=== PATIENT | male | born 1940 | race Caucasian/White ===

== ENCOUNTER 2020-05-28 10:59 | Inpatient (IN) | payer MEDICARE, BC, OTHER ==
[2020-05-28 11:48] LABS: #Lymphocytes 1.4 thou/uL (1.20-3.40); #Monocytes 0.9 thou/uL (0.11-0.59); #Neutrophils 7.1 thou/uL (1.40-6.50); %Basophils 0.1 % (0.0-1.0); %Eosinophils 0.1 % (0.0-10.0); %Lymphocytes 14.8 % (21.0-51.0); %Monocytes 9.9 % (0.0-10.0); %Neutrophils 75.1 % (42.0-75.0); Mean Corpuscular HGB CONC 33.3 g/dL (32.0-36.0); Mean Corpuscular Hemoglobin 33.5 pg (27.0-31.0); Mean Platelet Volume 9.4 fL (7.4-10.4); Platelet Count 229 thou/uL (130-400); RBC Distribution Width 13.1 % (11.5-14.5); Red Blood Cell (RBC) Count 3.58 mill/uL (4.70-6.10); White Blood Cell (WBC) Count 9.4 thou/uL (4.8-10.8)
[2020-05-28 11:53] LABS: INR-International Normal Ratio 1.2
[2020-05-28 11:54] LABS: PTT 30.1 sec (22.9-36.1)
[2020-05-28] MEDS ORDERED: Pantoprazole 40 MG VIAL ONE (12:05)
[2020-05-28 12:11] LABS: ALT (SGPT) 14 U/L (8-55); AST (SGOT) 20 U/L (5-34); Albumin 3.2 g/dL (3.4-4.8); Alkaline Phosphatase 34 U/L (40-110); Anion Gap 17 mmol/L (10-20); BUN (Urea Nitrogen) 61 mg/dL (8.4-25.7); Bilirubin, Total 0.7 mg/dL (0.2-1.2); Calc. Creatinine Clearance 0 mL/min (70-130); Carbon Dioxide 22 mmol/L (23-31); Chloride 104 mmol/L (98-107); Globulin 2.8 g/dL (2.4-3.5); Glucose 138 mg/dL (83-110); Potassium 3.6 mmol/L (3.5-5.1); Sodium 139 mmol/L (136-145)
[2020-05-28] MEDS ORDERED: Ondansetron PF 4 MG/2 ML Vial IVP PRN (13:03)
[2020-05-28] MEDS ORDERED: Acetaminophen 325 MG TAB PO PRN (13:03)
[2020-05-28] MEDS ORDERED: Dextrose 50% Abboject 50 ML SYRINGE SLOW IVP PRN (13:05)
[2020-05-28] MEDS ORDERED: HumaLOG 300 UNITS/3 ML VIAL SC PRN (13:05)
[2020-05-28] MEDS ORDERED: Dextrose 5% in Water 1,000 ML IV PRN (13:05)
[2020-05-28 14:01] LABS: Hemoglobin 11.8 g/dL (14.0-18.0)
[2020-05-28 14:41] LABS: CKMB 5.8 ng/mL (0-6.6)
[2020-05-28] MEDS ORDERED: Digoxin 0.5 MG/2 ML AMP SLOW IVP SCH (14:45)
[2020-05-28] MEDS ORDERED: Sodium Chloride 0.9% 1,000 ML IV SCH (14:45)
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
--- NOTE | 2020-05-28 16:05 | CON ---
DATE OF CONSULTATION: 05/28/2020 REQUESTING PHYSICIAN: Minal Hernandez MD REASON FOR CONSULTATION: Melena. HISTORY OF PRESENT ILLNESS: Vinh Mishra is a 79-year-old man with prior history of remote CVA and coronary artery disease as well as former tobacco abuse. He is being admitted to the hospital after presenting today complaining of melena, fatigue, and dizziness. He reports no chronic gastrointestinal symptoms. No prior significant gastrointestinal history. He has never undergone EGD or colonoscopy and has no family history of GI malignancy. He denies NSAID use. He does take what sounds like Aggrenox. He reports that for about the past week he has been having episodic dizziness and lightheadedness. Then the day before yesterday, he started having jet black stool. This is completely new for him. He has had two or three episodes of this over the past couple of days, much looser than before with a couple of accidents. There has been no red blood per rectum. No nausea or vomiting or hematemesis. He is not having any abdominal pain or heartburn. His fatigue and shortness of breath increased today and so he presented for evaluation. Upon arrival, he was mildly hypotensive with blood pressure 94/48 with 1 L of IV fluid. His blood pressure came back up nicely. Laboratory studies demonstrate hemoglobin mildly low at 11.8, BUN 61, creatinine 1.66. CK-MB only 5.8, troponin only 0.081. He was started on Protonix drip and is being admitted for further evaluation of the melena. REVIEW OF SYSTEMS: Full review of systems including constitutional, head, eyes, ears, nose, throat, GI, , cardiovascular, respiratory, musculoskeletal, neurologic systems is negative except as noted in the HPI. PAST MEDICAL HISTORY: Coronary artery disease, status post PTCA in the , hypertension, hyperlipidemia, diabetes, obesity, left ankle ORIF, CVA in 2013, former tobacco abuse, former alcohol abuse, and macular degeneration. ALLERGIES: NO KNOWN DRUG ALLERGIES. MEDICATIONS: Outpatient medications: The patient cannot remember the name of medications. He is taking what sounds like Aggrenox. He denies any NSAID use. Inpatient medications: Pantoprazole IV drip. SOCIAL HISTORY: He previously abused alcohol and smokes, but quit all that 10 or more years ago. No current smoking, alcohol, or drug use. FAMILY HISTORY: Negative for GI malignancy. PHYSICAL EXAMINATION: VITAL SIGNS: Temperature 97.5, blood pressure 127/72, pulse 85, and oxygen saturation 100% on room air. GENERAL: A 79-year-old man, lying in bed comfortably, in no distress. SKIN: He is a bit pale. No jaundice. No rashes were palpable. EYES: No scleral icterus. Extraocular movements intact. ENT: Mucous membranes moist. No oral lesions. LYMPH: No submandibular or supraclavicular lymphadenopathy. THYROID: Nontender to palpation. HEART: Regular rate and rhythm. LUNGS: Clear to auscultation bilaterally. ABDOMEN: Nondistended. Bowel sounds present. Soft and nontender to palpation throughout. EXTREMITIES: No peripheral edema. VESSELS: Radial pulses 2+ bilaterally. NEURO: Cranial nerves II through XII intact bilaterally. No focal deficits. LABORATORY STUDIES: Hemoglobin 11.8, WBC 9.4, platelets 229, and MCV is 100.0. INR 1.2. Sodium 139, potassium 3.6, BUN 61, creatinine is 1.66, and glucose 138. LFTs all normal with total bilirubin 0.7, alkaline phosphatase 34, AST 20, ALT 14, albumin 3.2, troponin is 0.081, CK-MB is only 5.8. ASSESSMENT AND PLAN: 1. Melena, over the past couple of days. 2. Anemia, mild. 3. Fatigue. The patient's presentation does sound like subacute gastrointestinal hemorrhage, likely upper gastrointestinal source. Aside from the melena, he does not have any primary GI symptoms. He appears hemodynamically stable at this point. I agree with the pantoprazole drip. We are going to plan for diagnostic esophagogastroduodenoscopy tomorrow. Get the COVID screen done today. I did discuss with the patient that if the upper endoscopy is completely normal and he has significant hemoglobin decline, we may need to consider colonoscopy thereafter, but he is against the idea of undergoing any colonoscopy. Further recommendations following EGD tomorrow. Please call anytime with questions or concerns or significant changes in his clinical status. Job ID: [id number]
[2020-05-28 19:21] LABS: Hemoglobin 10.9 g/dL (14.0-18.0)
[2020-05-28] MEDS: Pantoprazole 80 MG, Admixture Fee 1 EACH in Sodium Chloride 0.9% 100 ML IVPB SCH (23:08)
[2020-05-29 01:14] LABS: Hemoglobin 9.6 g/dL (14.0-18.0)
[2020-05-29 04:20] LABS: #Eosinphils 0.1 thou/uL (0.0-0.7); #Lymphocytes 1.1 thou/uL (1.20-3.40); #Monocytes 0.7 thou/uL (0.11-0.59); #Neutrophils 4.8 thou/uL (1.40-6.50); %Basophils 0.2 % (0.0-1.0); %Eosinophils 1.4 % (0.0-10.0); %Lymphocytes 16.4 % (21.0-51.0); %Monocytes 10.1 % (0.0-10.0); Mean Corpuscular HGB CONC 33.6 g/dL (32.0-36.0); Mean Platelet Volume 8.8 fL (7.4-10.4); Platelet Count 168 thou/uL (130-400); RBC Distribution Width 13.1 % (11.5-14.5); Red Blood Cell (RBC) Count 2.95 mill/uL (4.70-6.10); White Blood Cell (WBC) Count 6.7 thou/uL (4.8-10.8)
[2020-05-29 04:42] LABS: Anion Gap 12 mmol/L (10-20); BUN (Urea Nitrogen) 62 mg/dL (8.4-25.7); Calc. Creatinine Clearance 62 mL/min (70-130); Calcium 8.3 mg/dL (7.8-10.44); Carbon Dioxide 24 mmol/L (23-31); Chloride 108 mmol/L (98-107); Glucose 90 mg/dL (83-110); Potassium 3.4 mmol/L (3.5-5.1); Sodium 141 mmol/L (136-145)
[2020-05-29 07:06] LABS: Hemoglobin 10.2 g/dL (14.0-18.0)
--- NOTE | 2020-05-29 08:50 | PRG ---
DATE OF SERVICE: 05/29/2020 SUBJECTIVE: Mr. Mishra feels about the same today. He has generalized fatigue. He denies dizziness or lightheadedness, but he has been supine all morning. He denies any chest pain or palpitations or significant shortness of breath. No nausea or vomiting. He had one bowel movement last night, which remained dark in color. Anesthesia has canceled his EGD this morning due to new onset atrial fibrillation, needing further workup prior to any other procedure. OBJECTIVE: VITAL SIGNS: Temperature 98.7, pulse 102 and irregular, blood pressure 104/55, 97% oxygen saturation on room air. GENERAL: No acute distress. HEART: Irregular borderline tachycardia. LUNGS: Clear to auscultation bilaterally. ABDOMEN: Soft, nondistended. Bowel sounds present. Nontender to palpation. EXTREMITIES: No peripheral edema. LABORATORY STUDIES: Hemoglobin declined to 10.2, but stable since midnight. WBC is 6.7, platelets 168. INR 1.2. Sodium 141, potassium 3.4, BUN 62, creatinine 1.42, glucose 89, calcium 8.3. ASSESSMENT AND PLAN: 1. Melena, subacute over the past 3 days. 2. Acute blood loss anemia, mild, also seems subacute. 3. Fatigue. 4. New onset atrial fibrillation. Anesthesia has canceled his planned EGD for this morning due to what appears to be new onset atrial fibrillation. I have notified the primary service. Also note, the patient's COVID result is still pending, though I really do not suspect COVID in his case. GI can continue to follow along, and can plan for EGD whenever formal cardiac clearance is obtained. In the meantime, I would hesitate to start the patient on any anticoagulation, but would defer this to the primary service and/or apprentice plumber. Continue with the IV PPI. I think he can have a diet today. Please call anytime with questions or concerns, and let us know when the patient has been cleared for procedure. Job ID: [id number]
[2020-05-29] MEDS ORDERED: FLU VACC QS2020-21(65YR UP)/PF 240 MCG/0.7 ML SYRINGE IM ONE (09:00)
[2020-05-29 12:35] LABS: Hemoglobin 10.4 g/dL (14.0-18.0)
[2020-05-29] MEDS: Pantoprazole 80 MG, Admixture Fee 1 EACH in Sodium Chloride 0.9% 100 ML IVPB SCH ×2 (13:04→20:54)
--- NOTE | 2020-05-29 15:52 | PDOC.HOSPP ---
- Subjective Encounter Date: 05/29/20 Encounter Time: 15:50 Subjective: This is a 79-year-old who presented to the hospital with melena. He is not the greatest of historians. He reportedly had called his sibling with a complaint of feeling dizzy whenever he tried to ambulate and he advised him to go to the emergency room. Since being admitted he reported 2 more episodes of dark stools. His hemoglobin appears reasonably stable. He is being evaluated by GI service. Since being admitted he was found to have atrial fibrillation but with rate control. Patient denies prior history of A. fib. GI wants cardiac clearance prior to any kind of intervention. Patient is unable to be anticoagu lated due to the GI bleeding issues. We will ask a watch engineer colleague to help us out. - Objective Vital Signs & Weight: Vital Signs (12 hours) Temp Pulse Pulse Pulse Resp BP BP 05/29/20 12:00 99.4 F 95 20 05/29/20 11:20 105 H 69 129/62 159/69 H 05/29/20 08:23 98.3 F 89 20 05/29/20 08:00 98.5 F 89 20 05/29/20 04:00 98.7 F 102 H 16 BP Pulse Ox 05/29/20 12:00 127/58 L 94 L 05/29/20 11:20 05/29/20 08:23 118/55 L 98 05/29/20 08:00 118/55 L 98 05/29/20 04:00 104/55 L 97 Weight Weight 224 lb I&O: 05/28/20 05/29/20 05/30/20 07:59 06:59 06:59 Intake Total Balance Result Diagrams: 05/29/20 12:10 05/29/20 04:02 Additional Labs: Accuchecks 05/29/20 05/29/20 05/28/20 10:57 05:46 20:23 POC Glucose 99 89 133 H 05/28/20 18:28 POC Glucose 105 H Radiology Reviewed by me: Yes EKG Reviewed by me: Yes Hospitalist ROS - Review of Systems Constitutional: reports: chills, weakness, malaise Gastrointestinal: reports: nausea, vomiting - Medication Medications: Active Medications Generic Name Dose Route Start Last Admin Trade Name Freq PRN Reason Stop Dose Admin Pantoprazole Sodium 80 mg/ 100 mls @ 10 mls/hr 05/28/20 12:30 05/29/20 13:04 Miscellaneous Medication 1 IVPB 100 mls each/ Sodium Chloride INF LUCIA Administration - Exam General Appearance: NAD, awake alert Eye: PERRL ENT: normocephalic atraumatic, no oropharyngeal lesions Neck: supple, symmetric, no lymphadenopathy Heart: RRR, no murmur, normal peripheral pulses Gastrointestinal: soft, non-tender, non-distended, normal bowel sounds Extremities: no clubbing, no edema Psychiatric: normal affect, normal behavior Hosp A/P (1) Melena Code(s): K92.1 - MELENA Status: Acute Plan: GI evaluation is ongoing. H&H seems reasonably stable. (2) Atrial fibrillation Code(s): I48.91 - UNSPECIFIED ATRIAL FIBRILLATION Status: Acute Qualifiers: Atrial fibrillation type: paroxysmal Qualified Code(s): I48.0 - Paroxysmal atrial fibrillation Plan: This appears to be new onset. He denied any prior history of A. fib. We will continue rate control strategies. He is not a candidate for anticoagulation for obvious reasons. (3) Anemia due to chronic blood loss Code(s): D50.0 - IRON DEFICIENCY ANEMIA SECONDARY TO BLOOD LOSS (CHRONIC) Status: Acute Plan: We will continue to watch H&H very close. - Plan old records reviewed/req, PT/OT, DVT proph w/SCDs #1. Atrial fibrillation. He is rate controlled at the moment. I will ask cardiology for an opinion. He is not going to be a candidate for anticoagulation.
[2020-05-29 18:21] LABS: Hemoglobin 10.9 g/dL (14.0-18.0)
[2020-05-29] MEDS: Metoprolol Tartrate 25 MG TAB PO SCH (20:29)
--- NOTE | 2020-05-29 21:09 | CON ---
DATE OF CONSULTATION: HISTORY OF PRESENT ILLNESS: The patient is a 79-year-old gentleman who is to undergo an endoscopy today and was found to have an irregular heart rhythm. The patient has a history of coronary artery disease. He states nearly 30 years ago he underwent coronary angioplasty. He has subsequently done well. He presented to the hospital with weakness and dizziness. The patient started having dark stool and was admitted for further evaluation. The patient denies having any palpitations. PAST MEDICAL HISTORY: 1. Coronary artery disease. 2. Diabetes mellitus. 3. Hypertension. 4. Dyslipidemia. 5. History of CVA. PAST SURGICAL HISTORY: Ankle surgery. SOCIAL HISTORY: He is a former smoker. ALLERGIES: NO KNOWN DRUG ALLERGIES. FAMILY HISTORY: There is a positive family history of coronary artery disease. REVIEW OF SYSTEMS: Ten-point system otherwise unremarkable. PHYSICAL EXAMINATION: GENERAL: A well-developed gentleman, in no acute distress. VITAL SIGNS: Blood pressure 127/58. NECK: No jugular venous distention. LUNGS: Clear to auscultation. HEART: Irregular rate and rhythm. Normal S1, S2 with a 1/6 systolic murmur. ABDOMEN: Nondistended. EXTREMITIES: Show no edema. VASCULAR: Radial pulses 2+. LABORATORY DATA: Sodium 141, potassium 3.4, chloride 108, bicarb 24, BUN 62, creatinine was 1.4. White blood cell count 6.7, hemoglobin 10, hematocrit 29.7. His platelets were 168. EKG atrial fibrillation with a controlled ventricular response. IMPRESSION: 1. Gastrointestinal hemorrhage. 2. Paroxysmal atrial fibrillation. 3. History of coronary artery disease. 4. Diabetes mellitus. 5. Hypertension. 6. Dyslipidemia. 7. Mild aortic stenosis. This gentleman presents with atrial fibrillation. From a cardiac standpoint, he cannot be anticoagulated due to his recent hemorrhage. The patient's echocardiogram revealed normal left ventricular systolic function. After he undergoes a GI evaluation, he needs to either be on chronic anticoagulation therapy or consider for a Watchman device. This gentleman presented with gastrointestinal hemorrhage. He is in atrial fibrillation. We will start him on lopressor to control the patient's heart rate. He will undergo endoscopy. We will follow this patient with you through his hospitalization. Job ID: [id number] [facility]
[2020-05-30 04:29] LABS: #Eosinphils 0.1 thou/uL (0.0-0.7); #Lymphocytes 1.2 thou/uL (1.20-3.40); #Monocytes 0.7 thou/uL (0.11-0.59); #Neutrophils 4.2 thou/uL (1.40-6.50); %Basophils 0.6 % (0.0-1.0); %Eosinophils 1.6 % (0.0-10.0); %Lymphocytes 19.1 % (21.0-51.0); %Neutrophils 67.6 % (42.0-75.0); Hemoglobin 10.3 g/dL (14.0-18.0); Mean Corpuscular HGB CONC 33.7 g/dL (32.0-36.0); Mean Corpuscular Hemoglobin 33.9 pg (27.0-31.0); Mean Platelet Volume 8.8 fL (7.4-10.4); Platelet Count 169 thou/uL (130-400); Red Blood Cell (RBC) Count 3.03 mill/uL (4.70-6.10); White Blood Cell (WBC) Count 6.2 thou/uL (4.8-10.8)
[2020-05-30 04:56] LABS: Anion Gap 11 mmol/L (10-20); BUN (Urea Nitrogen) 50 mg/dL (8.4-25.7); Calc. Creatinine Clearance 71 mL/min (70-130); Calcium 8.1 mg/dL (7.8-10.44); Carbon Dioxide 26 mmol/L (23-31); Chloride 106 mmol/L (98-107); Glucose 91 mg/dL (83-110); Magnesium 1.7 mg/dL (1.6-2.6); Potassium 3.4 mmol/L (3.5-5.1); Sodium 140 mmol/L (136-145)
[2020-05-30] MEDS: Metoprolol Tartrate 25 MG TAB PO SCH ×2 (08:52→20:08)
[2020-05-30] MEDS ORDERED: Metoprolol Tartrate 25 MG TAB PO SCH ×2 (09:51→10:00)
[2020-05-30] MEDS: Pantoprazole 80 MG, Admixture Fee 1 EACH in Sodium Chloride 0.9% 100 ML IVPB SCH ×2 (10:15→20:08)
[2020-05-30] MEDS ORDERED: PHENYLEPHRINE-NS 100 MCG/ML 10 ML SYRINGE ONE (11:32)
[2020-05-30] MEDS ORDERED: PROPOFOL 200 MG/20 ML VIAL ONE (11:32)
[2020-05-30] MEDS ORDERED: Lidocaine 1% PF 5 ML VIAL ONE (11:32)
[2020-05-30 12:50] LABS: SARS-CoV-2 MS2 Positive; SARS-CoV-2 N Gene Negative; SARS-CoV-2 S Gene Negative; SARS-CoV-2 by NAA Not Detected (NotDetected); SARS-CoV-2 orf1ab Negative
--- NOTE | 2020-05-30 16:30 | PDOC.HOSPP ---
- Subjective Encounter Date: 05/30/20 Encounter Time: 16:29 Subjective: 79-year-old seen and examined today. He presented with melena. GI evaluation is ongoing. He is going down for upper endoscopy today. His hemoglobin appears relatively stable. - Objective Vital Signs & Weight: Vital Signs (12 hours) Temp Pulse Resp BP Pulse Ox 05/30/20 12:15 98.8 F 92 16 129/60 92 L 05/30/20 09:10 92 L 05/30/20 08:40 98.4 F 111 H 18 124/58 L 92 L Weight Admit Weight 226 lb 8 oz Weight 227 lb 9.6 oz I&O: 05/29/20 05/30/20 05/31/20 06:59 06:59 06:59 Intake Total 1506 Output Total 1100 Balance 406 Result Diagrams: 05/30/20 04:10 05/30/20 04:10 Additional Labs: Accuchecks 05/30/20 05/30/20 05/29/20 10:32 06:06 20:47 POC Glucose 84 95 74 05/29/20 17:30 POC Glucose 78 Radiology Reviewed by me: Yes EKG Reviewed by me: Yes Hospitalist ROS - Review of Systems Constitutional: reports: weakness Eyes: reports: pain Cardiovascular: reports: chest pain Gastrointestinal: reports: nausea Neurological: reports: weakness - Medication Medications: Active Medications Generic Name Dose Route Start Last Admin Trade Name Freq PRN Reason Stop Dose Admin Pantoprazole Sodium 80 mg/ 100 mls @ 10 mls/hr 05/28/20 12:30 05/29/20 20:54 Miscellaneous Medication 1 IVPB 100 mls each/ Sodium Chloride INF LUCIA Administration - Exam General Appearance: awake alert, ill appearing Eye: PERRL ENT: normocephalic atraumatic, moist mucosa Neck: supple Respiratory: CTAB, no wheezes, no rales, no ronchi, normal chest expansion Gastrointestinal: soft, non-tender, non-distended, normal bowel sounds, no palpable masses, no hepatomegaly Extremities: no cyanosis Neurological: cranial nerve grossly intact Musculoskeletal: normal tone, generalized weakness Psychiatric: normal affect, normal behavior, A&O x 3 Hosp A/P (1) Melena Code(s): K92.1 - MELENA Status: Acute Plan: Plan for endoscopic evaluation today. (2) Atrial fibrillation Code(s): I48.91 - UNSPECIFIED ATRIAL FIBRILLATION Status: Acute Qualifiers: Atrial fibrillation type: paroxysmal Qualified Code(s): I48.0 - Paroxysmal atrial fibrillation Plan: Cardiology cleared him for procedure today. We will pursue rate control strategy for now. (3) Anemia due to chronic blood loss Code(s): D50.0 - IRON DEFICIENCY ANEMIA SECONDARY TO BLOOD LOSS (CHRONIC) Status: Acute - Plan #1. Atrial fibrillation. He is rate controlled at the moment. I will ask cardiology for an opinion. He is not going to be a candidate for anticoagulation. 2. Melena. GI evaluation today with upper endoscopy.
--- NOTE | 2020-05-30 17:06 | PDOC.FMACP ---
Advance Care Planning - Problem (1) Palliative care encounter Status: Acute Code(s): Z51.5 - ENCOUNTER FOR PALLIATIVE CARE (2) Anemia due to chronic blood loss Status: Acute Code(s): D50.0 - IRON DEFICIENCY ANEMIA SECONDARY TO BLOOD LOSS (CHRONIC) (3) Atrial fibrillation Status: Acute Code(s): I48.91 - UNSPECIFIED ATRIAL FIBRILLATION Qualifiers: Atrial fibrillation type: paroxysmal Qualified Code(s): I48.0 - Paroxysmal atrial fibrillation (4) Melena Status: Acute Code(s): K92.1 - MELENA - Note Participants: patient, palliative care Summary: Palliative Care addressed Advanced Care Planning, opportunity to decline. The diagnosis, prognosis and goals of care were discussed. Appropriate forms and documentation to accomplish the goals of care were discussed. All questions were answered. MPOA and directive to physician were completed. Original given to patient along with copies, copy placed on the chart as well for medical records. Mr Mishra elected to transition to a DNAR, Physician notified by registrar. Please also refer to notes in note section. Time Spent (mins): 15
--- NOTE | 2020-05-31 08:14 | CON ---
DATE OF CONSULTATION: 05/30/2020 CHIEF COMPLAINT: Upper GI bleed. HISTORY OF PRESENT ILLNESS: This is a 79-year-old male with a history of new onset atrial fibrillation associated with upper GI bleeding, just went EGD by Dr. Gilmore, where he was found to have a submucosal tumor along the lesser curve at the incisura. He has never had previous GI bleed. He normally does not take a blood thinner. The patient has no pain this afternoon after his endoscopy. PAST MEDICAL HISTORY: Diabetes, hypertension, hyperlipidemia, and obesity. PAST SURGICAL HISTORY: Ankle surgery. SOCIAL HISTORY: Former heavy drinker, formal tobacco. No other drugs. REVIEW OF SYSTEMS: Ten-system review of systems otherwise negative unless described above. PHYSICAL EXAMINATION: HEENT: Sclerae anicteric. Oropharynx clear. NECK: No lymphadenopathy. CHEST: Clear. HEART: Irregular rate. ABDOMEN: Soft, nontender, and nondistended. LABORATORY DATA: White blood cell count is 6, hemoglobin is 10. Creatinine is 1.25. ASSESSMENT: 1. Submucosal mass of stomach, recent gastrointestinal bleed as this is the source. 2. New onset atrial fibrillation, likely needs long-term anticoagulation. PLAN: His options would be simple observation for this area that would not be definitive biopsy or excision if this represents a sarcoma. 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 If he is going to need chronic anticoagulation, however he would likely need the surgery from a palliative standpoint. 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 We will see what Cardiology recommends. Their final recommendations could perform that surgery later on in the week. Job ID: [id number]
[2020-05-31] MEDS: Metoprolol Tartrate 25 MG TAB PO SCH ×2 (08:35→21:37)
--- NOTE | 2020-05-31 09:12 | OP ---
DATE OF PROCEDURE: 05/30/2020 PREOPERATIVE DIAGNOSIS: 1. GI hemorrhage. 2. Recent diagnosis of atrial fibrillation. 3. Stable hemodynamics. 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 Its location is just on the proximal side of the incisura/lesser curve, towards the anterior aspect of the stomach. No overt visible vessel bleeding. RECOMMENDATIONS: 1. IV PPI q.12 hours. 2. No NSAIDs. 3. Surgical consultation for removal. This is a high risk to rebleed and will not heal with medication. ANESTHESIA: TIVA. DESCRIPTION OF PROCEDURE: After the patient was informed of the risks, benefits, and possible complications of endoscopy including perforation, reaction to medication, and aspiration, informed consent was obtained. The patient was brought to endoscopy suite. He was sedated in gradual fashion. A bite block was placed in incisural orifice. The endoscope was advanced through esophagus, stomach, into the second and third portions of the duodenum and slowly removed. There was good visualization of the mucosa. The esophagus was normal. The stomach was noted to be normal on retroflexed views at the GE junction, but on the incisura anteriorly, just on the proximal side of the lesser curve, there was a submucosal mass with a superficial erosion with stigmata of recent bleeding. There was no visible vessel or clot to indicate high risk for rebleed right now. The stomach otherwise had normal distention. The duodenal bulb into the third portion was normal as was the antrum. The submucosal mass probed and was firm, it was not biopsied. The scope was removed. The patient tolerated the procedure well. There were no complications. Job ID: [id number]
--- NOTE | 2020-05-31 09:27 | PDOC.GSCN ---
Surgery Consult: HPI - Consult details Date: 05/31/20 Time: 09:00 History of present illness: 05/31/20 09:25 Mr. Mishra is a 79 yo male that presented to the hospital on 05/28 due to generalized weakness and melena. Mr. Mishra is a 79 year old male that presented to the hospital on 05/28 due to generalized weakness and melena. 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 Per GI, it was not actively bleeding at this time. 05/31/20 09:32 Surgery Consult: ROS - Review of Systems Constitutional: reports: as per HPI, fatigue, weakness. denies: headache(s) HEENT: denies: Head Aches, Visual Changes Cardiovascular: reports: regular rate and rhythm Respiratory: denies: chest congestion, cough Gastrointestinal: denies: abdominal pain, bloating, change in bowel habits (He has not seen his most recent BM that he passed yesterday so unsure if it still showed signs of melena), cramping, hematemesis, nausea, vomiting Surgery Consult: [facility] Source: patient - Past Family History Family history: reviewed and not pertinent (history of distant relatives with non-GI related cancers) - Past Social History Smoking Status: Former smoker Alcohol Use: other (heavy drinker when he was younger but quit over 30 years ago) Drug Use History: none Living Situation: (He lives with his that has dementia. He is mostly concerned about making sure that she is taken care of if anything happens to him.) Surgery Consult: Exam - Vital signs Vital signs: Vital Signs - Most Recent Temp Pulse Resp BP Pulse Ox 98.2 F 80 18 135/63 97 05/31/20 03:13 05/31/20 05:01 05/31/20 05:01 05/31/20 05:01 05/31/20 03:13 - Physical Exam General: no distress Respiratory: clear to auscultation, clear to percussion, normal expansion, normal respiratory effort Abdomen: non tender, soft, tender Hernia: none Psychiatric: memory intact, oriented to time, oriented to person, oriented to place, speech is normal Surgery Consult: Meds - Medications MAR Reviewed: Yes Medications: Current Medications Acetaminophen (Acetaminophen 325 Mg Tab) 650 mg PO Q4H PRN PRN Reason: Headache/Fever/Mild Pain (1-3) Dextrose/Water (Dextrose 50% Abboject 50 Ml Syringe) 25 gm SLOW IVP PRN PRN PRN Reason: Hypoglycemia Glucagon (Glucagon 1 Mg/Ml Vial) 1 mg IM PRN PRN PRN Reason: Hypoglycemia Pantoprazole Sodium 80 mg/Miscellaneous Medication 1 each/ Sodium Chloride 100 mls @ 10 mls/hr IVPB INF [facility] Last Admin: 05/30/20 20:08 Dose: 100 mls Documented by: Dextrose/Water (D5w) 1,000 mls @ 0 mls/hr IV .Q0M PRN PRN Reason: Hypoglycemia Insulin Human Lispro (Humalog 300 Units/3 Ml Vial) 0 units SC .MILD SLIDING SCALE PRN PRN Reason: Mild Correctional Scale Metoprolol Tartrate (Metoprolol Tartrate 25 Mg Tab) 25 mg PO BID [facility] Last Admin: 05/31/20 08:35 Dose: 25 mg Documented by: Ondansetron HCl (Ondansetron Pf 4 Mg/2 Ml Vial) 4 mg IVP Q6H PRN PRN Reason: Nausea/Vomiting Sodium Chloride (Flush - Normal Saline 10 Ml Syringe) 10 ml IVF Q12HR [facility] Last Admin: 05/31/20 08:39 Dose: 10 ml Documented by: Sodium Chloride (Flush - Normal Saline 10 Ml Syringe) 10 ml IVF PRN PRN PRN Reason: Saline Flush - Allergies Allergies/Adverse Reactions: Allergies Allergy/AdvReac Type Severity Reaction Status Date / Time No Known Allergies Allergy Verified 10/16/19 15:47 Surgery Consult: Results - Labs Result Diagrams: 05/30/20 04:10 05/30/20 04:10 Lab results: Laboratory Results WBC 6.2 thou/uL (4.8-10.8) 05/30/20 04:10 RBC 3.03 mill/uL (4.70-6.10) L 05/30/20 04:10 Hgb 10.3 g/dL (14.0-18.0) L 05/30/20 04:10 Hct 30.4 % (42.0-52.0) L 05/30/20 04:10 MCV 101.0 fL (78.0-98.0) H 05/30/20 04:10 MCH 33.9 pg (27.0-31.0) H 05/30/20 04:10 MCHC 33.7 g/dL (32.0-36.0) 05/30/20 04:10 RDW 13.0 % (11.5-14.5) 05/30/20 04:10 Plt Count 169 thou/uL (130-400) 05/30/20 04:10 MPV 8.8 fL (7.4-10.4) 05/30/20 04:10 Neutrophils % 67.6 % (42.0-75.0) 05/30/20 04:10 Lymphocytes % 19.1 % (21.0-51.0) L 05/30/20 04:10 Monocytes % 11.0 % (0.0-10.0) H 05/30/20 04:10 Eosinophils % 1.6 % (0.0-10.0) 05/30/20 04:10 Basophils % 0.6 % (0.0-1.0) 05/30/20 04:10 Neutrophils # 4.2 thou/uL (1.40-6.50) 05/30/20 04:10 Lymphocytes # 1.2 thou/uL (1.20-3.40) 05/30/20 04:10 Monocytes # 0.7 thou/uL (0.11-0.59) H 05/30/20 04:10 Eosinophils # 0.1 thou/uL (0.0-0.7) 05/30/20 04:10 Basophils # 0.0 thou/uL (0.0-0.2) 05/30/20 04:10 PT 15.0 sec (12.0-14.7) H 05/28/20 11:34 INR 1.2 05/28/20 11:34 APTT 30.1 sec (22.9-36.1) 05/28/20 11:34 Sodium 140 mmol/L (136-145) 05/30/20 04:10 Potassium 3.4 mmol/L (3.5-5.1) L 05/30/20 04:10 Chloride 106 mmol/L (98-107) 05/30/20 04:10 Carbon Dioxide 26 mmol/L (23-31) 05/30/20 04:10 Anion Gap 11 mmol/L (10-20) 05/30/20 04:10 BUN 50 mg/dL (8.4-25.7) H 05/30/20 04:10 Creatinine 1.25 mg/dL (0.7-1.3) 05/30/20 04:10 Estimated GFR (MDRD) 56 05/30/20 04:10 Glucose 91 mg/dL (83-110) 05/30/20 04:10 POC Glucose 77 mg/dL (70-100) 05/31/20 05:45 Calcium 8.1 mg/dL (7.8-10.44) 05/30/20 04:10 Magnesium 1.7 mg/dL (1.6-2.6) 05/30/20 04:10 Total Bilirubin 0.7 mg/dL (0.2-1.2) 05/28/20 11:34 AST 20 U/L (5-34) 05/28/20 11:34 ALT 14 U/L (8-55) 05/28/20 11:34 Alkaline Phosphatase 34 U/L (40-110) L 05/28/20 11:34 CK-MB (CK-2) 5.8 ng/mL (0-6.6) 05/28/20 13:05 Troponin I 0.081 ng/mL (< 0.028) H 05/28/20 13:05 Serum Total Protein 6.0 g/dL (5.8-8.1) 05/28/20 11:34 Albumin 3.2 g/dL (3.4-4.8) L 05/28/20 11:34 Globulin 2.8 g/dL (2.4-3.5) 05/28/20 11:34 Albumin/Globulin Ratio 1.1 g/dL (1.2-2.2) L 05/28/20 11:34 TSH 3rd Generation 3.3643 uIU/mL (0.35-4.94) 05/28/20 14:44 SARS-CoV-2 (PCR) Not Detected (NotDetected) 05/28/20 15:17 Blood Type A POSITIVE 05/28/20 11:34 Antibody Screen NEGATIVE 05/28/20 11:34 Surgery Consult: A/P - Plan Plan: Submucosal tumor of the lesser curvature He is not currently experiencing active bleeding at this time. He will be observed for the time being to ensure that he does not begin to actively bleed again. If pathology shows the mass to be a sarcoma then excision would be recommended from a palliative standpoint. The patients main concerns at this time are making sure that his is taken care of because he is her only caregiver and she suffers from dementia. He is on a PPI and liquid diet at this time. Atrial fibrillation He is not anticoagulated at this time. He is currently taking metoprolol for rhythm control.
--- NOTE | 2020-05-31 11:18 | PRG ---
DATE OF SERVICE: 05/31/2020 SUBJECTIVE: Mr. Mishra has no complaints today. He has not had anymore tarry stools. OBJECTIVE: VITAL SIGNS: He is afebrile and his vital signs are stable. ABDOMEN: Soft, nontender, nondistended. LABORATORY DATA: There are no new labs today. ASSESSMENT: 1. Submucosal tumor of uncertain etiology that is small, but along the lesser curve at the incisura. 2. New onset atrial fibrillation. Recommendation for anticoagulation. PLAN: Mr. Mishra is still figuring out his home situation. His has moderate dementia and he is her caregiver. If he were to undergo surgery, that this could turn into 2 to 4 weeks of rehab or senior living and he would not be able to serve in that role. He is hesitant to undergo operation until he has made arrangements for his and I agree. Continue to follow for now. After his family situation is worked out, we would performed gastrectomy versus excision of this area. Job ID: [id number]
--- NOTE | 2020-05-31 12:04 | PRG ---
DATE OF SERVICE: 05/31/2020 SUBJECTIVE: Mr. Mishra has had no bowel movement over the last couple of days. No abdominal pain. He is tolerating a clear liquid diet. OBJECTIVE: VITAL SIGNS: Temperature 98.3, pulse 94, blood pressure 153/66. GENERAL: He is in no acute distress. He is pale, alert and oriented. LUNGS: Clear to auscultation bilaterally. HEART: Regular rate and rhythm without murmur. ABDOMEN: Soft, nontender, and nondistended. Bowel sounds are present. EXTREMITIES: No lower extremity edema. LABORATORY DATA: Hemoglobin 10.3, MCV 101. Creatinine 1.25. IMPRESSION: 1. 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 He has no further overt bleeding now. Endoscopically, this is thought to be most consistent with a just tumor. 2. Atrial fibrillation. 3. Anemia of acute blood loss, currently stable. RECOMMENDATIONS: Resection of the submucosal tumor has been recommended, is believed to be high risk for repeat bleeding. This is complicated by the patient's home situation, he is a primary caregiver for his with dementia and atrial fibrillation. He is working with his family to find care for his , and General Surgery is following. Job ID: [id number]
[2020-05-31] MEDS: Pantoprazole 80 MG, Admixture Fee 1 EACH in Sodium Chloride 0.9% 100 ML IVPB SCH (12:22)
--- NOTE | 2020-05-31 15:09 | PDOC.HOSPP ---
- Subjective Encounter Date: 05/31/20 Encounter Time: 15:06 Subjective: Patient was seen and evaluated. He underwent an EGD yesterday and he was found to have a submucosal gastric mass. Surgery evaluation has been obtained. Patient however is trying to sort out his home situation before he consents for surgery. We appreciate surgery and GI ongoing evaluations. - Objective Vital Signs & Weight: Vital Signs (12 hours) Temp Pulse Pulse Resp BP BP BP 05/31/20 12:15 97.6 F 121 H 26 H 135/61 05/31/20 11:16 100 152/64 H 179/77 H 05/31/20 07:31 98.3 F 94 153/66 H 05/31/20 05:01 80 18 135/63 05/31/20 03:13 98.2 F 85 15 180/75 H Pulse Ox 05/31/20 12:15 96 05/31/20 11:16 05/31/20 07:31 96 05/31/20 05:01 05/31/20 03:13 97 Weight Admit Weight 226 lb 8 oz Weight 224 lb 12.8 oz I&O: 05/30/20 05/31/20 06/01/20 06:59 06:59 06:59 Intake Total 1506 926.1 Output Total 1100 740 Balance 406 186.1 Result Diagrams: 05/30/20 04:10 05/30/20 04:10 Additional Labs: Accuchecks 05/31/20 05/31/20 05/30/20 11:03 05:45 20:24 POC Glucose 96 77 79 05/30/20 16:40 POC Glucose 86 Hospitalist ROS - Review of Systems Constitutional: reports: weakness, malaise - Medication Medications: Active Medications Generic Name Dose Route Start Last Admin Trade Name Freq PRN Reason Stop Dose Admin Pantoprazole Sodium 80 mg/ 100 mls @ 10 mls/hr 05/28/20 12:30 05/31/20 12:22 Miscellaneous Medication 1 IVPB 100 mls each/ Sodium Chloride INF LUCIA Administration Metoprolol Tartrate 25 mg 05/30/20 21:00 05/31/20 08:35 Metoprolol Tartrate 25 Mg Tab PO 25 mg BID LUCIA Administration Sodium Chloride 10 ml 05/30/20 21:00 05/31/20 08:39 Flush - Normal Saline 10 Ml Syringe IVF 10 ml Q12HR LUCIA Administration - Exam General Appearance: NAD, awake alert, ill appearing Eye: PERRL, anicteric sclera ENT: normocephalic atraumatic, moist mucosa Neck: supple, symmetric, no lymphadenopathy, no carotid bruit Heart: RRR, no murmur, no gallops, normal peripheral pulses Respiratory: CTAB, no wheezes, no rales, no ronchi, normal chest expansion Gastrointestinal: soft, non-tender, non-distended, normal bowel sounds, no palpable masses, no hepatomegaly Extremities: no cyanosis, no clubbing Skin: normal turgor, no lesions Neurological: cranial nerve grossly intact, normal sensation to touch Psychiatric: normal affect, normal behavior Hosp A/P (1) Melena Code(s): K92.1 - MELENA Status: Acute (2) Atrial fibrillation Code(s): I48.91 - UNSPECIFIED ATRIAL FIBRILLATION Status: Acute Qualifiers: Atrial fibrillation type: paroxysmal Qualified Code(s): I48.0 - Paroxysmal atrial fibrillation (3) Anemia due to chronic blood loss Code(s): D50.0 - IRON DEFICIENCY ANEMIA SECONDARY TO BLOOD LOSS (CHRONIC) Status: Acute (4) Gastric mass Code(s): K31.89 - OTHER DISEASES OF STOMACH AND DUODENUM Status: Acute Plan: Surgical evaluation is ongoing. - Plan #1. Atrial fibrillation. He is rate controlled at the moment. I will ask cardiology for an opinion. He is not going to be a candidate for anticoagulation. 2. Melena. GI evaluation today with upper endoscopy. #3. Submucosal gastric tumor. General surgery evaluation has been obtained.
[2020-06-01] MEDS: Pantoprazole 80 MG, Admixture Fee 1 EACH in Sodium Chloride 0.9% 100 ML IVPB SCH ×2 (00:46→16:21)
[2020-06-01] MEDS: Metoprolol Tartrate 25 MG TAB PO SCH ×2 (08:20→21:54)
[2020-06-01 11:23] LABS: Hemoglobin 11.4 g/dL (14.0-18.0)
--- NOTE | 2020-06-01 15:30 | PDOC.HOSPP ---
- Subjective Encounter Date: 06/01/20 Encounter Time: 15:28 Subjective: Patient seen and evaluated. He has no complaint. He has agreed to surgical intervention. I will defer to the GI and general surgeon about the timing of surgery. I will monitor his labs. - Objective Vital Signs & Weight: Vital Signs (12 hours) Temp Pulse Resp BP Pulse Ox 06/01/20 11:34 98.4 F 90 17 143/69 H 99 06/01/20 08:10 96 06/01/20 07:40 98.2 F 104 H 18 138/66 96 06/01/20 03:48 98.6 F 85 15 146/65 H 96 Weight Admit Weight 226 lb 8 oz Weight 223 lb 4.8 oz I&O: 05/31/20 06/01/20 06/02/20 06:59 06:59 06:59 Intake Total 926.1 1100 Output Total 740 930 Balance 186.1 170 Result Diagrams: 06/01/20 11:06 05/30/20 04:10 Additional Labs: Accuchecks 06/01/20 06/01/20 05/31/20 10:31 05:19 20:13 POC Glucose 88 86 97 05/31/20 16:50 POC Glucose 116 H Radiology Reviewed by me: Yes EKG Reviewed by me: Yes Hospitalist ROS - Review of Systems ROS unobtainable: due to mental status Constitutional: reports: fever, weakness, malaise Respiratory: reports: cough Neurological: reports: weakness, change in speech - Medication Medications: Active Medications Generic Name Dose Route Start Last Admin Trade Name Freq PRN Reason Stop Dose Admin Pantoprazole Sodium 80 mg/ 100 mls @ 10 mls/hr 05/28/20 12:30 06/01/20 00:46 Miscellaneous Medication 1 IVPB 100 mls each/ Sodium Chloride INF LUCIA Administration Metoprolol Tartrate 25 mg 05/30/20 21:00 06/01/20 08:20 Metoprolol Tartrate 25 Mg Tab PO 25 mg BID LUCIA Administration Sodium Chloride 10 ml 05/30/20 21:00 06/01/20 08:20 Flush - Normal Saline 10 Ml Syringe IVF Not Given Q12HR LUCIA - Exam General Appearance: NAD Eye: PERRL, anicteric sclera ENT: normocephalic atraumatic, no oropharyngeal lesions, moist mucosa Neck: supple, symmetric, no lymphadenopathy Heart: RRR, no rubs Respiratory: CTAB, no wheezes, no rales, no ronchi, normal chest expansion Gastrointestinal: soft, non-tender, non-distended, normal bowel sounds Extremities: no clubbing Skin: normal turgor, no lesions Neurological: cranial nerve grossly intact, normal sensation to touch, no weakness Musculoskeletal: normal tone, normal strength, no muscle wasting, generalized weakness Hosp A/P (1) Melena Code(s): K92.1 - MELENA Status: Acute Plan: No further dark stools since being admitted. (2) Atrial fibrillation Code(s): I48.91 - UNSPECIFIED ATRIAL FIBRILLATION Status: Acute Qualifiers: Atrial fibrillation type: paroxysmal Qualified Code(s): I48.0 - Paroxysmal atrial fibrillation (3) Anemia due to chronic blood loss Code(s): D50.0 - IRON DEFICIENCY ANEMIA SECONDARY TO BLOOD LOSS (CHRONIC) Status: Acute (4) Gastric mass Code(s): K31.89 - OTHER DISEASES OF STOMACH AND DUODENUM Status: Acute (5) Gastric stromal tumor Code(s): C49.A2 - GASTROINTESTINAL STROMAL TUMOR OF STOMACH Status: Acute - Plan #1. Atrial fibrillation. He is rate controlled at the moment. I will ask cardiology for an opinion. He is not going to be a candidate for anticoagulation. 2. Melena. GI evaluation today with upper endoscopy. #3. Submucosal gastric tumor. General surgery evaluation has been obtained. 06/01/2020. Plan for surgical intervention. I will defer to the general surgeon about timing of such procedure.
--- NOTE | 2020-06-01 16:43 | PRG ---
DATE OF SERVICE: 06/01/2020 REASON FOR CONSULTATION: Melena with EGD showing a GI stromal tumor. SUBJECTIVE: The patient did have a semi-solid black bowel movement last night, but has not had any further episodes today nor has any had any hematemesis or hematochezia. Otherwise, he states that he is doing well with no difficulties tolerating a full liquid diet. Currently, he denies any nausea, vomiting, fevers, chills, hematemesis, or hematochezia. OBJECTIVE: VITAL SIGNS: Temperature 98.4, pulse 90, blood pressure 143/69, respiratory rate 17, saturating 99% on 1.5 L nasal cannula. GENERAL: The patient is lying in bed, in no acute distress. Alert and oriented x4. CARDIOVASCULAR: Regular rate and rhythm. RESPIRATORY: Clear to auscultation bilaterally. ABDOMEN: Normoactive bowel sounds. Soft, nontender, nondistended. EXTREMITIES: No cyanosis, clubbing, or edema. LABORATORY DATA: Hemoglobin of 11.4, hematocrit 35. IMAGING DATA: The patient underwent an upper endoscopy on May 30, 2020, which showed a 2- to 2.5-cm globular submucosal mass seen along the lesser curvature/incisura with an overlying superficial ulceration indicative of recent bleeding. 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 ASSESSMENT AND PLAN: The patient is a 79-year-old male with past medical history of coronary artery disease, status post stent placement in the , hypertension, hyperlipidemia, diabetes, obesity, cerebrovascular accident, former tobacco and alcohol use, now presenting with fatigue, dizziness, and melenic type stools with gastrointestinal stromal tumor seen on upper endoscopy. Upper gastrointestinal bleeding/gastrointestinal stromal tumor. The patient initially presented to the hospital with complaints of generalized fatigue and dizziness along with semi-solid/liquid black bowel movements concerning for an upper gastrointestinal bleed. He was noted to be mildly hypotensive in the ER on admission that responded well to IV fluid administration. He subsequently underwent an upper endoscopy on May 30, 2020, which showed a 2.2- to 2.5-cm globular submucosal mass seen in the stomach along the lesser curvature/incisura with an overlying ulceration indicative of a likely source of gastrointestinal bleeding. Given the submucosal nature of the lesion, biopsies were not taken given probable lack of diagnostic histology. However, given the superficial ulceration and the propensity for GI stromal tumor to intermittently bleed, this lesion has had a high risk for rebleeding. General Surgery has already been consulted on this patient with recommendations for surgical resection. However, the patient is reluctant to proceed with any intervention at this time due to the time needed for recovery in the postprocedure period and the fact that the patient is the sole caregiver of his who has severe dementia. Currently, his H and H are up trending making the likelihood of active gastrointestinal bleeding much less so, and the patient may have some time to decide or make arrangements for care for his . However, again given the size, location, and characteristics of lesion, it is at a higher risk of rebleeding with the more definitive treatment being surgical resection. RECOMMENDATIONS: 1. Would continue to trend his H and H and transfuse as necessary to maintain an H and H of 7/21. 2. Continue to monitor clinically for signs of active GI bleeding. 3. We will continue to hold any anticoagulation for this patient as long as able in light of recent GI bleeding. 4. Agree with General Surgery Service and that this lesion needs to be resected given the increased risk of rebleeding. 5. Repeat upper endoscopy with cautery at this point would only be a temporizing measure with more definitive treatment being surgical resection. 6. We will continue to work with the patient about finding care for his , so that the patient himself can undergo definitive treatment if the patient desire so. At this time, we have no further additional recommendations, and we will sign off. Please call with any questions. Job ID: [id number]
[2020-06-02] MEDS: Pantoprazole 80 MG, Admixture Fee 1 EACH in Sodium Chloride 0.9% 100 ML IVPB SCH ×3 (00:50→22:17)
[2020-06-02] MEDS: Metoprolol Tartrate 50 MG TAB PO SCH ×2 (09:08→22:17)
--- NOTE | 2020-06-02 12:55 | PDOC.GSPN ---
Surgery Progress Note: Subj - Subjective Patient reports: no new complaints Surgery Progress Note: Obj - Vital signs Vital signs: Vital Signs - Most Recent Temp Pulse Resp BP Pulse Ox 98.2 F 85 20 122/61 97 06/02/20 11:42 06/02/20 11:42 06/02/20 11:42 06/02/20 11:42 06/02/20 11:42 - Physical Exam General: no distress Cardiovascular: regular rate and rhythm Respiratory: clear to auscultation Abdomen: soft, non tender, nondistended Surgery Progress Note: Results - Labs Result Diagrams: 06/01/20 11:06 05/30/20 04:10 Lab results: Laboratory Results - last 12 hr 06/02/20 06/02/20 05:44 10:27 POC Glucose 108 H 122 H Surgery Progress Note: A/P - Problem (1) Gastric stromal tumor Current Visit: Yes Code(s): C49.A2 - GASTROINTESTINAL STROMAL TUMOR OF STOMACH Status: Acute - Plan Plan: -Family issues stabilized. -Plan antrectomy and gastrojejunostomy on Saturday.
--- NOTE | 2020-06-02 18:06 | PDOC.HOSPP ---
- Subjective Encounter Date: 06/02/20 Encounter Time: 18:04 Subjective: Plan for surgical intervention early next week. He otherwise has no concern. - Objective Vital Signs & Weight: Vital Signs (12 hours) Temp Pulse Resp BP Pulse Ox 06/02/20 15:30 98.5 F 85 18 141/61 H 99 06/02/20 11:42 98.2 F 85 20 122/61 97 06/02/20 08:12 100 06/02/20 07:52 97.8 F 85 18 125/58 L 100 Weight Admit Weight 226 lb 8 oz Weight 225 lb 8 oz I&O: 06/01/20 06/02/20 06/03/20 06:59 06:59 06:59 Intake Total 1100 1455 Output Total 930 800 Balance 170 655 Result Diagrams: 06/01/20 11:06 05/30/20 04:10 Additional Labs: Accuchecks 06/02/20 06/02/20 06/02/20 16:38 10:27 05:44 POC Glucose 126 H 122 H 108 H 06/01/20 20:04 POC Glucose 132 H Radiology Reviewed by me: Yes EKG Reviewed by me: Yes Hospitalist ROS - Review of Systems ROS unobtainable: due to mental status Respiratory: reports: cough, shortness of breath - Medication Medications: Active Medications Generic Name Dose Route Start Last Admin Trade Name Freq PRN Reason Stop Dose Admin Pantoprazole Sodium 80 mg/ 100 mls @ 10 mls/hr 05/28/20 12:30 06/02/20 12:07 Miscellaneous Medication 1 IVPB 100 mls each/ Sodium Chloride INF LUCIA Administration Metoprolol Tartrate 50 mg 06/02/20 09:00 06/02/20 09:08 Metoprolol Tartrate 50 Mg Tab PO 50 mg BID LUCIA Administration Sodium Chloride 10 ml 05/30/20 21:00 06/02/20 09:08 Flush - Normal Saline 10 Ml Syringe IVF 10 ml Q12HR LUCIA Administration - Exam Neck: supple Heart: RRR Respiratory: CTAB, no wheezes, normal chest expansion, normal percussion Gastrointestinal: soft, non-tender, non-distended, normal bowel sounds, no palpable masses, no hepatomegaly Extremities: no cyanosis, 1+ LE edema Neurological: cranial nerve grossly intact, normal sensation to touch, no weakness, no focal deficits, no new deficit Musculoskeletal: normal tone, normal strength, no muscle wasting Psychiatric: normal affect, normal behavior, A&O x 3, oriented to person, oriented to place, oriented to time Hosp A/P (1) Melena Code(s): K92.1 - MELENA Status: Acute (2) Atrial fibrillation Code(s): I48.91 - UNSPECIFIED ATRIAL FIBRILLATION Status: Acute Qualifiers: Atrial fibrillation type: paroxysmal Qualified Code(s): I48.0 - Paroxysmal atrial fibrillation (3) Anemia due to chronic blood loss Code(s): D50.0 - IRON DEFICIENCY ANEMIA SECONDARY TO BLOOD LOSS (CHRONIC) Status: Acute (4) Gastric mass Code(s): K31.89 - OTHER DISEASES OF STOMACH AND DUODENUM Status: Acute (5) Gastric stromal tumor Code(s): C49.A2 - GASTROINTESTINAL STROMAL TUMOR OF STOMACH Status: Acute - Plan #1. Atrial fibrillation. He is rate controlled at the moment. I will ask cardiology for an opinion. He is not going to be a candidate for anticoagulation. 2. Melena. GI evaluation today with upper endoscopy. #3. Submucosal gastric tumor. General surgery evaluation has been obtained. 06/01/2020. Plan for surgical intervention. I will defer to the general surgeon about timing of such procedure. 06/02/2020. Plan for surgery early next week.
[2020-06-03] MEDS: Pantoprazole 80 MG, Admixture Fee 1 EACH in Sodium Chloride 0.9% 100 ML IVPB SCH (10:02)
[2020-06-03] MEDS: Metoprolol Tartrate 50 MG TAB PO SCH ×2 (10:04→21:06)
--- NOTE | 2020-06-03 14:36 | PDOC.HOSPP ---
- Subjective Encounter Date: 06/03/20 Encounter Time: 14:34 Subjective: Mr. Mishra is a 71-year-old patient who presented to the hospital with melena. He was seen by GI and he underwent an upper endoscopy. He was noted to have a submucosal mass with superficial erosion with stigmata of recent bleeding around the lesser curvature of the stomach. General surgery has been consulted and they plan to operate on him Saturday of next week. - Objective Vital Signs & Weight: Vital Signs (12 hours) Temp Pulse Pulse Resp BP BP Pulse Ox 06/03/20 11:46 98.7 F 116 H 14 132/57 L 95 06/03/20 10:58 97 132/57 L 06/03/20 08:06 95 06/03/20 07:32 98.4 F 95 14 133/62 95 06/03/20 05:58 98.5 F 115 H 16 142/59 H 96 Pulse Ox 06/03/20 11:46 06/03/20 10:58 95 06/03/20 08:06 06/03/20 07:32 06/03/20 05:58 Weight Admit Weight 226 lb 8 oz Weight 224 lb 14.4 oz I&O: 06/02/20 06/03/20 06/04/20 06:59 06:59 06:59 Intake Total 1455 2020 Output Total 800 550 Balance 655 1470 Result Diagrams: 06/01/20 11:06 05/30/20 04:10 Additional Labs: Accuchecks 06/03/20 06/03/20 06/02/20 10:56 06:21 20:33 POC Glucose 135 H 126 H 109 H 06/02/20 16:38 POC Glucose 126 H Radiology Reviewed by me: Yes EKG Reviewed by me: Yes Hospitalist ROS - Review of Systems Respiratory: reports: shortness of breath, SOB with excertion Gastrointestinal: reports: nausea, melena - Medication Medications: Active Medications Generic Name Dose Route Start Last Admin Trade Name Freq PRN Reason Stop Dose Admin Metoprolol Tartrate 50 mg 06/02/20 09:00 06/03/20 10:04 Metoprolol Tartrate 50 Mg Tab PO 50 mg BID LUCIA Administration Sodium Chloride 10 ml 05/30/20 21:00 06/03/20 10:05 Flush - Normal Saline 10 Ml Syringe IVF Not Given Q12HR LUCIA - Exam General Appearance: NAD, awake alert Eye: PERRL ENT: normocephalic atraumatic Neck: supple, symmetric, no JVD, no lymphadenopathy Heart: RRR, normal peripheral pulses Respiratory: CTAB, no wheezes, normal percussion Gastrointestinal: soft, non-tender, non-distended, normal bowel sounds Extremities: no cyanosis, no clubbing Skin: normal turgor Neurological: no weakness, no focal deficits Musculoskeletal: normal tone, normal strength Psychiatric: normal affect, normal behavior, A&O x 3 Hosp A/P (1) Melena Code(s): K92.1 - MELENA Status: Acute (2) Atrial fibrillation Code(s): I48.91 - UNSPECIFIED ATRIAL FIBRILLATION Status: Acute Qualifiers: Atrial fibrillation type: paroxysmal Qualified Code(s): I48.0 - Paroxysmal atrial fibrillation (3) Anemia due to chronic blood loss Code(s): D50.0 - IRON DEFICIENCY ANEMIA SECONDARY TO BLOOD LOSS (CHRONIC) Status: Acute (4) Gastric mass Code(s): K31.89 - OTHER DISEASES OF STOMACH AND DUODENUM Status: Acute (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 Atrial fibrillation. He is rate controlled at the moment. I will ask cardiology for an opinion. He is not going to be a candidate for an ticoagulation. 2. Melena. GI evaluation today with upper endoscopy. #3. Submucosal gastric tumor. General surgery evaluation has been obtained. 06/01/2020. Plan for surgical intervention. I will defer to the general surgeon about timing of such procedure. 06/02/2020. Plan for surgery early next week.
[2020-06-04 08:15] LABS: #Eosinphils 0.1 thou/uL (0.0-0.7); #Lymphocytes 0.7 thou/uL (1.20-3.40); #Monocytes 0.6 thou/uL (0.11-0.59); #Neutrophils 5.1 thou/uL (1.40-6.50); %Eosinophils 1.1 % (0.0-10.0); %Lymphocytes 10.8 % (21.0-51.0); %Monocytes 9.7 % (0.0-10.0); %Neutrophils 78.5 % (42.0-75.0); Hemoglobin 10.9 g/dL (14.0-18.0); Mean Corpuscular HGB CONC 31.8 g/dL (32.0-36.0); Mean Platelet Volume 8.9 fL (7.4-10.4); Platelet Count 163 thou/uL (130-400); White Blood Cell (WBC) Count 6.6 thou/uL (4.8-10.8)
[2020-06-04 08:32] LABS: Anion Gap 11 mmol/L (10-20); BUN (Urea Nitrogen) 41 mg/dL (8.4-25.7); Calc. Creatinine Clearance 83 mL/min (70-130); Calcium 8.4 mg/dL (7.8-10.44); Carbon Dioxide 29 mmol/L (23-31); Chloride 105 mmol/L (98-107); Glucose 123 mg/dL (83-110); Potassium 4.1 mmol/L (3.5-5.1); Sodium 141 mmol/L (136-145)
[2020-06-04] MEDS: Metoprolol Tartrate 50 MG TAB PO SCH (09:02)
--- NOTE | 2020-06-04 15:52 | PDOC.HOSPP ---
- Subjective Encounter Date: 06/04/20 Encounter Time: 15:50 Subjective: Mr. Mishra was seen today in follow-up of GI- Bleed, and gastric mass. He does not have any complaint this afternoon. He denies abdominal pain. - Objective Vital Signs & Weight: Vital Signs (12 hours) Temp Pulse Resp BP Pulse Ox 06/04/20 15:37 98.3 F 71 17 167/67 H 95 06/04/20 11:16 98.2 F 83 20 117/58 L 99 06/04/20 08:59 98.4 F 67 18 124/61 98 06/04/20 08:20 98 Weight Admit Weight 226 lb 8 oz Weight 231 lb 7 oz I&O: 06/03/20 06/04/20 06/05/20 06:59 06:59 06:59 Intake Total 2020 980 Output Total 550 250 Balance 1470 730 Result Diagrams: 06/04/20 08:06 06/04/20 08:06 Additional Labs: Accuchecks 06/04/20 06/04/20 06/03/20 10:42 05:55 20:50 POC Glucose 165 H 111 H 182 H 06/03/20 17:04 POC Glucose 138 H Hospitalist ROS - Medication Medications: Active Medications Generic Name Dose Route Start Last Admin Trade Name Freq PRN Reason Stop Dose Admin Insulin Human Lispro 0 units 05/28/20 13:05 06/04/20 11:18 Humalog 300 Units/3 Ml Vial SC 2 unit .MILD SLIDING SCALE PRN Administration Mild Correctional Scale Metoprolol Tartrate 50 mg 06/02/20 09:00 06/04/20 09:02 Metoprolol Tartrate 50 Mg Tab PO 50 mg BID LUCIA Administration Pantoprazole Sodium 40 mg 06/04/20 09:00 06/04/20 09:02 Pantoprazole 40 Mg Tab PO 40 mg DAILY LUCAI Administration Sodium Chloride 10 ml 05/30/20 21:00 06/04/20 09:02 Flush - Normal Saline 10 Ml Syringe IVF 10 ml Q12HR LUCIA Administration - Exam Eye: PERRL, anicteric sclera Heart: RRR, no murmur, no gallops, no rubs, normal peripheral pulses Respiratory: CTAB, no wheezes, no rales, no ronchi, normal chest expansion, no tachypnea, normal percussion Gastrointestinal: soft, non-tender, non-distended, normal bowel sounds, no palpable masses, no hepatomegaly, no splenomegaly Extremities: no cyanosis, no edema Hosp A/P (1) Gastric mass Code(s): K31.89 - OTHER DISEASES OF STOMACH AND DUODENUM Status: Acute (2) Atrial fibrillation Code(s): I48.91 - UNSPECIFIED ATRIAL FIBRILLATION Status: Chronic Qualifiers: Atrial fibrillation type: paroxysmal Qualified Code(s): I48.0 - Paroxysmal atrial fibrillation (3) Diabetes mellitus type 2 in nonobese Code(s): E11.9 - TYPE 2 DIABETES MELLITUS WITHOUT COMPLICATIONS Status: Chronic - Plan * Gastric Antral mass- GI- bleed is felt to be due to this * Plan is for Antrectomy on Saturday * AFIB- he is not on anticoagulation- heart rate is stable- will re-start Metoprolol, while awaiting his procedure on Saturday * DM- will re-start his home medications, and continue SSI
[2020-06-04] MEDS: metFORMIN 500 MG TAB PO SCH (17:08)
[2020-06-04] MEDS: Alogliptin 6.25 MG TAB PO SCH (17:08)
[2020-06-04] MEDS: Rosuvastatin 10 MG TAB PO SCH (20:21)
[2020-06-05] MEDS ORDERED: Metoprolol Tartrate 5 MG/5 ML VIAL IVP PRN (03:20)
[2020-06-05] MEDS: Pioglitazone HCl 15 MG TAB PO SCH (08:43)
[2020-06-05] MEDS: Alogliptin 6.25 MG TAB PO SCH ×2 (08:43→17:43)
[2020-06-05] MEDS: metFORMIN 500 MG TAB PO SCH ×2 (08:44→17:43)
[2020-06-05] MEDS: Amlodipine 10 MG TAB PO SCH (08:44)
[2020-06-05] MEDS: Citalopram 20 MG TAB PO SCH (08:44)
--- NOTE | 2020-06-05 15:36 | PDOC.HOSPP ---
- Subjective Encounter Date: 06/05/20 Encounter Time: 15:35 Subjective: Mr. Mishra was seen today in follow-up of GI- Bleed. He does not have any complaints except for nasal stuffiness. - Objective Vital Signs & Weight: Vital Signs (12 hours) Temp Pulse Resp BP Pulse Ox Pulse Ox Pulse Ox 06/05/20 15:01 98.2 F 64 18 130/80 92 L 06/05/20 11:25 93 L 98 06/05/20 11:09 98.5 F 87 20 145/67 H 97 06/05/20 07:49 99.3 F 73 20 164/72 H 100 06/05/20 04:28 68 153/67 H Pulse Ox 06/05/20 15:01 06/05/20 11:25 97 06/05/20 11:09 06/05/20 07:49 06/05/20 04:28 Weight Admit Weight 226 lb 8 oz Weight 232 lb 11.2 oz I&O: 06/04/20 06/05/20 06/06/20 06:59 06:59 06:59 Intake Total 980 1040 Output Total 250 500 Balance 730 540 Result Diagrams: 06/04/20 08:06 06/04/20 08:06 Additional Labs: Accuchecks 06/05/20 06/05/20 06/04/20 11:09 05:26 21:31 POC Glucose 98 92 101 H 06/04/20 16:52 POC Glucose 123 H Hospitalist ROS - Medication Medications: Active Medications Generic Name Dose Route Start Last Admin Trade Name Freq PRN Reason Stop Dose Admin Alogliptin Benzoate 12.5 mg 06/04/20 17:00 06/05/20 08:43 Alogliptin 6.25 Mg Tab PO 12.5 mg BID-WM LUCIA Administration Amlodipine Besylate 10 mg 06/05/20 09:00 06/05/20 08:44 Amlodipine 10 Mg Tab PO 10 mg DAILY LUCIA Administration Citalopram Hydrobromide 10 mg 06/05/20 09:00 06/05/20 08:44 Citalopram 20 Mg Tab PO 10 mg DAILY LUCIA Administration Insulin Human Lispro 0 units 05/28/20 13:05 06/04/20 11:18 Humalog 300 Units/3 Ml Vial SC 2 unit .MILD SLIDING SCALE PRN Administration Mild Correctional Scale Isosorbide Mononitrate 30 mg 06/05/20 09:00 06/05/20 08:45 Isosorbide Mononitrate Er 30 Mg Tab PO 30 mg DAILY LUCIA Administration Metformin HCl 1,000 mg 06/04/20 17:00 06/05/20 08:44 Metformin 500 Mg Tab PO 1,000 mg BID-WM LUCIA Administration Metoprolol Succinate 50 mg 06/05/20 09:00 06/05/20 08:46 Metoprolol Succinate Xl 50 Mg Tab PO 50 mg DAILY LUCIA Administration Pantoprazole Sodium 40 mg 06/04/20 09:00 06/05/20 08:46 Pantoprazole 40 Mg Tab PO 40 mg DAILY LUCIA Administration Pioglitazone HCl 30 mg 06/05/20 09:00 06/05/20 08:43 Pioglitazone Hcl 15 Mg Tab PO 30 mg DAILY LUCIA Administration Rosuvastatin Calcium 10 mg 06/04/20 21:00 06/04/20 20:21 Rosuvastatin 10 Mg Tab PO 10 mg HS LUCIA Administration Sodium Chloride 10 ml 05/30/20 21:00 06/05/20 08:48 Flush - Normal Saline 10 Ml Syringe IVF 10 ml Q12HR LUCIA Administration - Exam Eye: PERRL, anicteric sclera Heart: RRR, no murmur, no gallops, no rubs, normal peripheral pulses Respiratory: CTAB, no wheezes, no rales, no ronchi, normal chest expansion, no tachypnea, normal percussion Gastrointestinal: soft, non-tender, non-distended, normal bowel sounds, no palpable masses, no hepatomegaly Extremities: no cyanosis, no edema Hosp A/P (1) Gastric mass Code(s): K31.89 - OTHER DISEASES OF STOMACH AND DUODENUM Status: Acute (2) Atrial fibrillation Code(s): I48.91 - UNSPECIFIED ATRIAL FIBRILLATION Status: Chronic Qualifiers: Atrial fibrillation type: paroxysmal Qualified Code(s): I48.0 - Paroxysmal atrial fibrillation (3) Diabetes mellitus type 2 in nonobese Code(s): E11.9 - TYPE 2 DIABETES MELLITUS WITHOUT COMPLICATIONS Status: Chronic - Plan * Gastric Antral mass- with GI Bleed * His H&H has remained stable * Plan is for Antrectomy on Saturday * AFIB- he is not on anticoagulation- heart rate is stable- will re-start Meto prolol, while awaiting his procedure on Saturday * DM- will re-start his home medications, and continue SSI
[2020-06-05] MEDS: Rosuvastatin 10 MG TAB PO SCH (20:26)
[2020-06-06] MEDS: metFORMIN 500 MG TAB PO SCH (08:26)
[2020-06-06] MEDS: Alogliptin 6.25 MG TAB PO SCH (08:26)
[2020-06-06] MEDS: Pioglitazone HCl 15 MG TAB PO SCH (08:27)
[2020-06-06] MEDS: Citalopram 20 MG TAB PO SCH (08:28)
[2020-06-06] MEDS: Amlodipine 10 MG TAB PO SCH (08:28)
[2020-06-06] MEDS ORDERED: Amiodarone 150 MG, Admixture Fee 1 EACH in Dextrose 5% in Water 100 ML IVPB SCH (08:45)
[2020-06-06 09:41] LABS: #Lymphocytes 0.7 thou/uL (1.20-3.40); #Monocytes 0.9 thou/uL (0.11-0.59); #Neutrophils 9.2 thou/uL (1.40-6.50); %Basophils 0.2 % (0.0-1.0); %Eosinophils 0.1 % (0.0-10.0); %Lymphocytes 6.7 % (21.0-51.0); Hemoglobin 10.5 g/dL (14.0-18.0); Mean Corpuscular HGB CONC 33.1 g/dL (32.0-36.0); Mean Corpuscular Hemoglobin 33.9 pg (27.0-31.0); Platelet Count 182 thou/uL (130-400); RBC Distribution Width 13.2 % (11.5-14.5); Red Blood Cell (RBC) Count 3.11 mill/uL (4.70-6.10); White Blood Cell (WBC) Count 10.9 thou/uL (4.8-10.8)
[2020-06-06] MEDS ORDERED: Fentanyl 100 MCG/2 ML VIAL ONE ×2 (09:52→14:17)
[2020-06-06 10:02] LABS: Anion Gap 14 mmol/L (10-20); BUN (Urea Nitrogen) 42 mg/dL (8.4-25.7); Calc. Creatinine Clearance 79 mL/min (70-130); Calcium 8.5 mg/dL (7.8-10.44); Carbon Dioxide 29 mmol/L (23-31); Chloride 104 mmol/L (98-107); Glucose 98 mg/dL (83-110); Potassium 4.4 mmol/L (3.5-5.1); Sodium 143 mmol/L (136-145)
[2020-06-06] MEDS: Amiodarone 450 MG, Admixture Fee 1 EACH in Dextrose 5% in Water 250 ML IVPB SCH (10:04)
[2020-06-06] MEDS ORDERED: Bupivacaine 0.25% HCL 30 ML VIAL ONE (10:53)
[2020-06-06] MEDS ORDERED: Lidocaine 1% w/Epinephrine 1:100K 20 ML VIAL ONE (10:53)
[2020-06-06] MEDS ORDERED: cefOXitin Sodium/Dextrose 2 GM/50 ML BAG ONE (11:49)
[2020-06-06] MEDS ORDERED: Lidocaine 1% PF 5 ML VIAL ONE (12:14)
[2020-06-06] MEDS ORDERED: Ondansetron PF 4 MG/2 ML Vial ONE (12:14)
[2020-06-06] MEDS ORDERED: PROPOFOL 200 MG/20 ML VIAL ONE (12:14)
[2020-06-06] MEDS ORDERED: Rocuronium Bromide 10 MG/ML (10ML VIAL) ONE (12:14)
[2020-06-06] MEDS ORDERED: PHENYLEPHRINE-NS 100 MCG/ML 10 ML SYRINGE ONE (12:14)
[2020-06-06] MEDS ORDERED: Dexamethasone 20 MG/5 ML VIAL ONE (12:14)
[2020-06-06] MEDS ORDERED: SUGAMMADEX SODIUM 500 MG/5 ML VIAL ONE (13:30)
[2020-06-06] MEDS ORDERED: Fentanyl 100 MCG/2 ML VIAL SLOW IVP PRN ×2 (13:37)
[2020-06-06] MEDS ORDERED: Non-Formulary Medication 1 EACH PO PRN (14:37)
[2020-06-06] MEDS ORDERED: Ondansetron HCl/PF 4 MG/2 ML Vial IVP PRN (14:45)
[2020-06-06] MEDS ORDERED: Promethazine HCl 25 MG/ML VIAL IM/IV PRN (14:45)
[2020-06-06] MEDS ORDERED: Morphine Sulfate 2 MG/ML SYRINGE SLOW IVP PRN (14:45)
[2020-06-06] MEDS: Sodium Chloride 0.9% 1,000 ML IV SCH (16:15)
--- NOTE | 2020-06-06 17:00 | PDOC.HOSPP ---
- Subjective Encounter Date: 06/06/20 Encounter Time: 16:59 Subjective: Mr. Mishra was seen today in follow-up of antral mass. He has some abdominal discomfort but otherwise ok. - Objective Vital Signs & Weight: Vital Signs (12 hours) Temp Pulse Resp BP Pulse Ox 06/06/20 07:07 99.1 F 105 H 20 177/67 H 94 L Weight Admit Weight 226 lb 8 oz Weight 232 lb 8 oz I&O: 06/05/20 06/06/20 06/07/20 06:59 06:59 06:59 Intake Total 1040 480 Output Total 500 375 Balance 540 105 Result Diagrams: 06/06/20 09:23 06/06/20 09:23 Additional Labs: Accuchecks 06/06/20 06/06/20 06/06/20 16:36 10:57 06:35 POC Glucose 168 H 113 H 91 06/05/20 06/05/20 20:00 17:12 POC Glucose 100 102 H Hospitalist ROS - Medication Medications: Active Medications Generic Name Dose Route Start Last Admin Trade Name Freq PRN Reason Stop Dose Admin Amlodipine Besylate 10 mg 06/05/20 09:00 06/06/20 08:28 Amlodipine 10 Mg Tab PO 10 mg DAILY LUCIA Administration Amiodarone HCl 450 mg/ 259 mls @ 0 mls/hr 06/06/20 08:45 06/06/20 10:04 Miscellaneous Medication 1 IVPB 259 mls each/ Dextrose/Water INF LUCIA Administration Protocol As Directed Sodium Chloride 1,000 mls @ 75 mls/hr 06/06/20 13:45 06/06/20 16:15 Normal Saline 0.9% IV 1,000 mls .[id number] LUCIA Administration Insulin Human Lispro 0 units 05/28/20 13:05 06/04/20 11:18 Humalog 300 Units/3 Ml Vial SC 2 unit .MILD SLIDING SCALE PRN Administration Mild Correctional Scale Isosorbide Mononitrate 30 mg 06/05/20 09:00 06/06/20 08:29 Isosorbide Mononitrate Er 30 Mg Tab PO 30 mg DAILY LUCIA Administration Metoprolol Succinate 50 mg 06/05/20 09:00 06/06/20 08:29 Metoprolol Succinate Xl 50 Mg Tab PO 50 mg DAILY LUCIA Administration Sodium Chloride 10 ml 05/30/20 21:00 06/06/20 08:31 Flush - Normal Saline 10 Ml Syringe IVF 10 ml Q12HR LUCIA Administration - Exam Eye: PERRL, anicteric sclera Heart: RRR, no murmur, no gallops, no rubs, normal peripheral pulses Respiratory: CTAB, no wheezes, no rales, no ronchi Gastrointestinal: soft, non-distended, normal bowel sounds, no palpable masses, no hepatomegaly, tender to palpation (+ midline abdominal scar, mild tenderness) Extremities: no cyanosis, no edema Hosp A/P (1) Gastric mass Code(s): K31.89 - OTHER DISEASES OF STOMACH AND DUODENUM Status: Acute (2) Atrial fibrillation Code(s): I48.91 - UNSPECIFIED ATRIAL FIBRILLATION Status: Chronic Qualifiers: Atrial fibrillation type: paroxysmal Qualified Code(s): I48.0 - Paroxysmal atrial fibrillation (3) Diabetes mellitus type 2 in nonobese Code(s): E11.9 - TYPE 2 DIABETES MELLITUS WITHOUT COMPLICATIONS Status: Chronic - Plan * Gastric Antral mass- with GI Bleed * He is s/p antrectomy and Gastroejunostomy * AFIB- his heart rate is stable * DM- agree with holding Metformin, and continue SSI * He has been placed on a clear liquid diet
[2020-06-07 04:42] LABS: #Lymphocytes 0.5 thou/uL (1.20-3.40); #Monocytes 0.9 thou/uL (0.11-0.59); #Neutrophils 13.1 thou/uL (1.40-6.50); %Basophils 0.1 % (0.0-1.0); %Eosinophils 0.1 % (0.0-10.0); %Lymphocytes 3.4 % (21.0-51.0); %Neutrophils 90.5 % (42.0-75.0); Hemoglobin 10.9 g/dL (14.0-18.0); Mean Corpuscular HGB CONC 32.1 g/dL (32.0-36.0); Mean Corpuscular Hemoglobin 33.1 pg (27.0-31.0); Mean Platelet Volume 9.5 fL (7.4-10.4); Platelet Count 184 thou/uL (130-400); RBC Distribution Width 13.5 % (11.5-14.5); Red Blood Cell (RBC) Count 3.29 mill/uL (4.70-6.10); White Blood Cell (WBC) Count 14.4 thou/uL (4.8-10.8)
[2020-06-07] MEDS: Sodium Chloride 0.9% 1,000 ML IV SCH ×2 (04:47→17:06)
[2020-06-07 05:11] LABS: Anion Gap 20 mmol/L (10-20); BUN (Urea Nitrogen) 48 mg/dL (8.4-25.7); Calc. Creatinine Clearance 60 mL/min (70-130); Calcium 8.3 mg/dL (7.8-10.44); Carbon Dioxide 20 mmol/L (23-31); Chloride 106 mmol/L (98-107); Glucose 155 mg/dL (83-110); Potassium 5.1 mmol/L (3.5-5.1); Sodium 141 mmol/L (136-145)
--- NOTE | 2020-06-07 07:21 | PDOC.HOSPP ---
- Subjective Encounter Date: 06/07/20 Encounter Time: 08:10 Subjective: Mr. Mishra is POD 1 for partial gastrectomy due to antral mass. Patient stated he was doing ok. He denied any new symptoms or pain. He denied having BM, but endorsed flatulence. - Objective Vital Signs & Weight: Vital Signs (12 hours) Temp Pulse Resp BP Pulse Ox 06/07/20 04:00 98.2 F 77 20 141/88 H 96 06/07/20 00:00 81 120/57 L 06/06/20 19:50 94 L 06/06/20 19:47 97.8 F 66 18 115/58 L 94 L Weight Admit Weight 226 lb 8 oz Weight 232 lb 8 oz I&O: 06/06/20 06/07/20 06/08/20 06:59 06:59 06:59 Intake Total 480 470 Output Total 375 200 Balance 105 270 Result Diagrams: 06/07/20 04:26 06/07/20 04:26 Additional Labs: Accuchecks 06/07/20 06/06/20 06/06/20 05:35 20:52 16:36 POC Glucose 149 H 136 H 168 H 06/06/20 10:57 POC Glucose 113 H Hospitalist ROS - Review of Systems Constitutional: denies: fever, chills, sweats Respiratory: reports: shortness of breath, SOB with excertion. denies: cough Cardiovascular: denies: chest pain, palpitations Gastrointestinal: reports: nausea. denies: vomiting, abdominal pain, diarrhea, constipation Neurological: denies: weakness, numbness - Medication Medications: Active Medications Generic Name Dose Route Start Last Admin Trade Name Juan Francisco PRN Reason Stop Dose Admin Amlodipine Besylate 10 mg 06/05/20 09:00 06/06/20 08:28 Amlodipine 10 Mg Tab PO 10 mg DAILY LUCIA Administration Amiodarone HCl 450 mg/ 259 mls @ 0 mls/hr 06/06/20 08:45 06/06/20 10:04 Miscellaneous Medication 1 IVPB 259 mls each/ Dextrose/Water INF LUCIA Administration Protocol As Directed Sodium Chloride 1,000 mls @ 75 mls/hr 06/06/20 13:45 06/07/20 04:47 Normal Saline 0.9% IV 1,000 mls .[id number] LUCIA Administration Insulin Human Lispro 0 units 05/28/20 13:05 06/04/20 11:18 Humalog 300 Units/3 Ml Vial SC 2 unit .MILD SLIDING SCALE PRN Administration Mild Correctional Scale Isosorbide Mononitrate 30 mg 06/05/20 09:00 06/06/20 08:29 Isosorbide Mononitrate Er 30 Mg Tab PO 30 mg DAILY LUCIA Administration Metoprolol Succinate 50 mg 06/05/20 09:00 06/06/20 08:29 Metoprolol Succinate Xl 50 Mg Tab PO 50 mg DAILY LUCIA Administration Sodium Chloride 10 ml 05/30/20 21:00 06/06/20 20:46 Flush - Normal Saline 10 Ml Syringe IVF Not Given Q12HR LUCIA - Exam General Appearance: NAD, awake alert ENT: normocephalic atraumatic Heart: RRR, no murmur, no gallops, no rubs Respiratory: CTAB, no wheezes, no rales, no ronchi Gastrointestinal: soft, non-tender, normal bowel sounds Gastrointestinal - other findings: Incision site was non-erythematous, no blood or discharge, healing well Extremities: 2+ LE edema (Edema of lower leg, bilateral) Hosp A/P (1) Gastric mass Code(s): K31.89 - OTHER DISEASES OF STOMACH AND DUODENUM Status: Acute (2) Atrial fibrillation Code(s): I48.91 - UNSPECIFIED ATRIAL FIBRILLATION Status: Chronic Qualifiers: Atrial fibrillation type: paroxysmal Qualified Code(s): I48.0 - Paroxysmal atrial fibrillation (3) Diabetes mellitus type 2 in nonobese Code(s): E11.9 - TYPE 2 DIABETES MELLITUS WITHOUT COMPLICATIONS Status: Chronic - Plan * Gastric Antral mass- with GI Bleed * He is s/p antrectomy and Gastroejunostomy: await path results * AFIB- heart rate is stable * DM- hold Metformin, continue SSI, monitor glucose levels * He has been placed on a clear liquid diet * * Patient seen and examined and discussed with Nathalie Mcduffie MS-3, and agree with above. Patient has a little abdominal discomfort, but is otherwise ok. Onexam his abdomen is soft, and mildly tender, bowel sounds present. Continue to advance diet as tolerated, ambulate, and await path results.
--- NOTE | 2020-06-07 07:22 | PDOC.GSPN ---
Surgery Progress Note: Subj - Subjective Narrative: Mr. 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 He was asleep upon entering the room but was easily arousable. He has no complaints today. He has had no appetite, has not passed gas or had a BM, and has not ambulated since surgery. There was 10 mL from jay at 7:20. He denies pain, fever, chills, n/v. Surgery Progress Note: Obj - Vital signs Vital signs: Vital Signs - Most Recent Temp Pulse Resp BP Pulse Ox 98.2 F 77 20 141/88 H 96 06/07/20 04:00 06/07/20 04:00 06/07/20 04:00 06/07/20 04:00 06/07/20 04:00 - Physical Exam General: no distress ENT: no congestion, other (Slight hearing loss) Neck: no harlan distention Cardiovascular: irregular rate, no murmur Respiratory: clear to auscultation, normal expansion, normal respiratory effort Abdomen: soft, non tender, nondistended, other (Hypoactive bowel sounds) Hernia: none Integumentary: other (Single ecchymosis on the left medial canthus) Psychiatric: oriented to person, oriented to place, other (Not oriented to time, irritable affect) Wound: dressing clean,dry,intact, healing well Surgery Progress Note: Results - Labs Result Diagrams: 06/07/20 04:26 06/07/20 04:26 Lab results: Laboratory Results - last 12 hr 06/06/20 06/07/20 06/07/20 20:52 04:26 04:26 WBC 14.4 H RBC 3.29 L Hgb 10.9 L Hct 34.0 L MCV 103.0 H MCH 33.1 H MCHC 32.1 RDW 13.5 Plt Count 184 MPV 9.5 Neutrophils % 90.5 H Lymphocytes % 3.4 L Monocytes % 6.0 Eosinophils % 0.1 Basophils % 0.1 Neutrophils # 13.1 H Lymphocytes # 0.5 L Monocytes # 0.9 H Eosinophils # 0.0 Basophils # 0.0 Sodium 141 Potassium 5.1 Chloride 106 Carbon Dioxide 20 L Anion Gap 20 BUN 48 H Creatinine 1.51 H Estimated GFR (MDRD) 45 Glucose 155 H POC Glucose 136 H Calcium 8.3 06/07/20 05:35 WBC RBC Hgb Hct MCV MCH MCHC RDW Plt Count MPV Neutrophils % Lymphocytes % Monocytes % Eosinophils % Basophils % Neutrophils # Lymphocytes # Monocytes # Eosinophils # Basophils # Sodium Potassium Chloride Carbon Dioxide Anion Gap BUN Creatinine Estimated GFR (MDRD) Glucose POC Glucose 149 H Calcium - EKG Data Rate: tachycardia (Irregular rate) Surgery Progress Note: A/P - Plan Plan: My assessment of this patient is that he is a 79 YO man with a PMH of GIST, DM2, and anemia who is status post op day 1 for 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 He is in no acute distress and denies any concerns this morning. He has not eaten, passed gas, had a BM, or ambulated since surgery. My plan for this patient is to keep him for another day to monitor his recovery. Encourage intake of clear liquid diet in the hopes of progressing him to soft solids tomorrow morning. Consider ordering PT consult to encourage ambulation in order to stimulate bowels, as he does not seem self-motivated to walk. As his jay had little output and his BUN and Cr has risen from 42 to 48 and 1.15 to 1.51, respectively, we will continue to monitor his volume status and increase his D5 as needed. Will continue to monitor blood glucose accordingly. Addendum - Physician - Physician Attestation Date/Time: 06/07/20 [id number] I personally performed or re-performed the physical examination and medical decision making. I have verified all student documentation or findings, including history, physical exam and/or medical decision making. POD 1 antrectomy, gastrojejunostomy -Highly likely he will need mcc -PO clear liquids as tolerated, suspect he will not tolerate much in the next few days -very important that he is active, he has not been thus far
[2020-06-07] MEDS: Pantoprazole 40 MG VIAL IVP SCH (09:32)
[2020-06-07] MEDS: Amlodipine 10 MG TAB PO SCH (09:32)
[2020-06-07] MEDS: Amiodarone 450 MG, Admixture Fee 1 EACH in Dextrose 5% in Water 250 ML IVPB SCH (09:33)
--- NOTE | 2020-06-07 10:34 | OP ---
DATE OF PROCEDURE: 06/06/2020 PREOPERATIVE DIAGNOSIS: Submucosal gastric mass at incisura. POSTOPERATIVE DIAGNOSIS: Submucosal gastric mass at incisura. PROCEDURE PERFORMED: Partial gastrectomy (antrectomy) with loop gastrojejunostomy. ANESTHESIA: General. ESTIMATED BLOOD LOSS: None. COMPLICATIONS: None. FINDINGS: There is a golf ball-sized tumor along the incisura of the lesser curve. DESCRIPTION OF PROCEDURE: The patient was taken to the operating room and laid supine on the operating room table. After general anesthetic was obtained, a Sanchez was placed. The abdomen was shaved, prepped, and draped in a sterile fashion. Upper midline incision was made and dissected into the abdominal cavity without complication. Bookwalter retractor was placed. The falciform ligament was taken down using LigaSure to facilitate Bookwalter retractor placement. Dissection was started on the lesser curve of the stomach just above the incisura. The palpable abnormality was just at the incisura along the lesser curve. A window was made into the lesser sac above and all the way to the greater curve of the stomach. The short gastrics were taken down from this window on the greater curve all the way toward the pylorus. Multiple loads of an [place] stapling device with Ethicon staple line reinforcements were used to form the top staple line of the antrectomy straight across the stomach. LigaSure was then used to dissect short gastrics all the way to the pylorus. The lesser curve vessels were taken down using LigaSure. Meticulous dissection was performed around the pylorus, and all the blood vessels were taken individually using LigaSure. An Ethicon stapler with Ethicon staple line reinforcements used to fire across the first portion of the duodenum just past the pylorus. The antrum of the stomach was sent to Path for final diagnosis. There was no bleeding. The ligament of Treitz was found, and 25 to 30 cm was marched distally. This loop was marked. The bare area underneath the transverse colon was opened and this loop easily passed through this posterior window in a retrocolic fashion. It was able to be pulled up to the posterior proximal stomach under no tension. Gastrotomy was made and enterotomy was made, and an anastomosis using 60 mm stapler was performed. The common enterotomy was closed transversely using 2-0 Vicryl in 2 layers. Crotch stitch was placed using silk. The window was closed using silk sutures on the anterior-posterior aspect of this window. There was no twist to the small bowel. There was no bleeding along the staple line. No ischemia. All instrument counts, needle counts, and lap counts were correct. There was no ongoing bleeding in the abdomen. The midline fascia was closed using #1 PDS from the top and bottom and tied in the middle. Subcutaneous tissues were irrigated, and the skin was closed using running 4-0 Monocryl and Dermabond. The patient was sent to Recovery in stable condition. All instrument counts, needle counts, and lap counts were correct. Job ID: [id number]
[2020-06-08] MEDS: Sodium Chloride 0.9% 1,000 ML IV SCH (06:34)
--- NOTE | 2020-06-08 07:53 | PDOC.HOSPP ---
- Subjective Encounter Date: 06/08/20 Encounter Time: 08:15 Subjective: is being followed for an antral mass and is S/P antrectomy and gastrojejunostomy. Patient stated he slept "pretty well" and is in no pain. Patient stated he was able to have several bowel movements yestersay evening. He endorsed difficulty breathing and having a "stuffy nose." - Objective Vital Signs & Weight: Vital Signs (12 hours) Temp Pulse Resp BP Pulse Ox 06/08/20 03:27 98.1 F 79 20 128/63 93 L 06/07/20 20:00 99.1 F 85 16 135/62 93 L Weight Admit Weight 226 lb 8 oz Weight 233 lb I&O: 06/07/20 06/08/20 06/09/20 06:59 06:59 06:59 Intake Total 1732 2352 Output Total 300 250 Balance 1432 2102 Result Diagrams: 06/07/20 04:26 06/07/20 04:26 Additional Labs: Accuchecks 06/08/20 06/07/20 06/07/20 05:24 19:42 16:58 POC Glucose 120 H 144 H 146 H 06/07/20 10:52 POC Glucose 140 H Hospitalist ROS - Review of Systems Constitutional: denies: fever, chills, sweats Respiratory: reports: cough, shortness of breath (patient stated constatnt feeling of SOB), SOB with excertion. denies: dry, hemoptysis, sputum Cardiovascular: denies: chest pain, palpitations Gastrointestinal: reports: diarrhea (patient vstated some of his BMs were loose and diarrhea). denies: nausea, vomiting Neurological: denies: weakness, numbness - Medication Medications: Active Medications Generic Name Dose Route Start Last Admin Trade Name Freq PRN Reason Stop Dose Admin Amlodipine Besylate 10 mg 06/05/20 09:00 06/07/20 09:32 Amlodipine 10 Mg Tab PO 10 mg DAILY LUCIA Administration Amiodarone HCl 450 mg/ 259 mls @ 0 mls/hr 06/06/20 08:45 06/07/20 09:33 Miscellaneous Medication 1 IVPB 259 mls each/ Dextrose/Water INF LUCIA Administration Protocol As Directed Sodium Chloride 1,000 mls @ 75 mls/hr 06/06/20 13:45 06/08/20 06:34 Normal Saline 0.9% IV 1,000 mls .[id number] LUCIA Administration Insulin Human Lispro 0 units 05/28/20 13:05 06/04/20 11:18 Humalog 300 Units/3 Ml Vial SC 2 unit .MILD SLIDING SCALE PRN Administration Mild Correctional Scale Isosorbide Mononitrate 30 mg 06/05/20 09:00 06/07/20 09:32 Isosorbide Mononitrate Er 30 Mg Tab PO 30 mg DAILY LUCIA Administration Pantoprazole Sodium 40 mg 06/07/20 09:00 06/07/20 09:32 Pantoprazole 40 Mg Vial IVP 40 mg DAILY LUCIA Administration Sodium Chloride 10 ml 05/30/20 21:00 06/07/20 19:55 Flush - Normal Saline 10 Ml Syringe IVF Not Given Q12HR LUCIA - Exam General Appearance: NAD, awake alert Heart: RRR, no murmur, no gallops, no rubs Respiratory: CTAB Gastrointestinal: soft, non-tender, non-distended, normal bowel sounds Gastrointestinal - other findings: surgical scar is healing well: dry and no discharge present Extremities: 1+ LE edema (mild edema in lower legs bilaterally) Psychiatric: normal affect, normal behavior, A&O x 3 Hosp A/P (1) Gastric mass Code(s): K31.89 - OTHER DISEASES OF STOMACH AND DUODENUM Status: Acute (2) Atrial fibrillation Code(s): I48.91 - UNSPECIFIED ATRIAL FIBRILLATION Status: Chronic Qualifiers: Atrial fibrillation type: paroxysmal Qualified Code(s): I48.0 - Paroxysmal atrial fibrillation (3) Diabetes mellitus type 2 in nonobese Code(s): E11.9 - TYPE 2 DIABETES MELLITUS WITHOUT COMPLICATIONS Status: Chronic - Plan * Gastric Antral mass- with GI Bleed * He is s/p antrectomy and Gastroejunostomy: waiting for path results * AFIB- heart rate is stable, normal sinus rhytmn * DM- hold Metformin, continue SSI, monitor glucose levels * He has been placed on a clear liquid diet, has been able to tolerate diet * * Patient seen and examined and discussed with Nathalie Mcduffie MS-3, and agree with above.Mr. Mishra does not have any new complaints. He denies abdominal discomfort.His appetite has been poor. On exam his heart sounds are normal, his abdomen is soft, non-tender, with normal bowel sounds. He has been encouraged to increase his oral intake. His diet has been advanced to full liquids. Will also increase his activity, and re-consult PT.
--- NOTE | 2020-06-08 07:53 | PDOC.GSPN ---
Surgery Progress Note: Subj - Subjective Narrative: Patient is stable post op day 2 and is in no acute distress. He has no complaints this morning other than wanting to go home to his . Nurse reports he reverted to Afib/flutter overnight. He reports occassional abdominal pain while coughing up phlegm. Patient is still on clear liquid diet and has no appetite. Patient has had no BM, but has been passing gas intermittently. PT visited the patient yesterday on 06/07 and was able to sit him on the side of the bed. Patient endorses new-onset dizziness while trying to ambulate. He denies fevers, chills, diaphoresis, peripheral swelling, or generalized fatigue. Surgery Progress Note: Obj - Vital signs Vital signs: Vital Signs - Most Recent Temp Pulse Resp BP Pulse Ox 98.1 F 79 20 128/63 93 L 06/08/20 03:27 06/08/20 03:27 06/08/20 03:27 06/08/20 03:27 06/08/20 03:27 - Physical Exam General: no distress, no pain ENT: no congestion, other (Mild hearing loss) Neck: no bruits, no harlan distention Cardiovascular: irregular rate, no murmur Respiratory: clear to auscultation, normal expansion, normal respiratory effort Abdomen: soft, non tender, nondistended, positive bowel sounds Hernia: none Integumentary: no abnormal pigmentation (Aside from ecchymosis on left medial canthus) Psychiatric: oriented to time, oriented to person, oriented to place, other (Irritable affect) Wound: dressing clean,dry,intact, healing well Surgery Progress Note: Results - Labs Result Diagrams: 06/07/20 04:26 06/07/20 04:26 Lab results: Laboratory Results - last 12 hr 06/07/20 06/08/20 19:42 05:24 POC Glucose 144 H 120 H Surgery Progress Note: A/P - Plan Plan: My assessment of this patient is that he is a 79 YO man with a PMH of GIST, T2DM, Afib, and anemia who is stable 2 days post op for 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 He has improved since yesterday, as he has attempted amb ulation and is passing gas. Patient denies appetite still, but bowel sounds are present. Blood glucose has improved from 140's to 120's this morning, which may be contributing to his dizziness which sounds orthostatic in nature. My plan for this patient is to continue to encourage ambulation with PT with the encouragement of going home sooner. I talked to the patient about the possibility that his lack of appetite and therefore nutrients has also contributed to his dizziness. Will continue to encourage PO intake, when tolerable, and progress him to soft solids when he has a steady PO intake for 12 hrs. Will monitor blood glucose and blood pressure Q6h to r/o physiologic causes of light-headedness. Consider CBC to r/o pathological causes of dizziness, including but not limited to anemia or worsening infection. Addendum - Physician - Physician Attestation Date/Time: 06/08/20 [id number] I personally performed or re-performed the physical examination and medical decision making. I have verified all student documentation or findings, includ ing history, physical exam and/or medical decision making. Advance to full liquids recheck chem7 in am.
[2020-06-08] MEDS: Amlodipine 10 MG TAB PO SCH (08:40)
[2020-06-08] MEDS: Enoxaparin Sodium 40 MG/0.4 ML SYRINGE SC SCH (08:41)
[2020-06-08] MEDS: Pantoprazole 40 MG VIAL IVP SCH (08:41)
[2020-06-08] MEDS: Amiodarone 450 MG, Admixture Fee 1 EACH in Dextrose 5% in Water 250 ML IVPB SCH ×2 (13:12→21:00)
[2020-06-08] MEDS ORDERED: Sodium Chloride 0.9% 1,000 ML IV SCH (14:38)
[2020-06-08] MEDS ORDERED: Metoprolol Tartrate 5 MG/5 ML VIAL IVP SCH (15:15)
[2020-06-09 04:42] LABS: #Lymphocytes 0.5 thou/uL (1.20-3.40); #Monocytes 0.7 thou/uL (0.11-0.59); #Neutrophils 8.6 thou/uL (1.40-6.50); %Eosinophils 0.3 % (0.0-10.0); %Lymphocytes 5.4 % (21.0-51.0); %Monocytes 7.1 % (0.0-10.0); %Neutrophils 87.2 % (42.0-75.0); Hemoglobin 10.6 g/dL (14.0-18.0); Mean Corpuscular HGB CONC 31.7 g/dL (32.0-36.0); Mean Corpuscular Hemoglobin 32.7 pg (27.0-31.0); Mean Platelet Volume 9.7 fL (7.4-10.4); Platelet Count 168 thou/uL (130-400); RBC Distribution Width 13.6 % (11.5-14.5); Red Blood Cell (RBC) Count 3.24 mill/uL (4.70-6.10); White Blood Cell (WBC) Count 9.8 thou/uL (4.8-10.8)
[2020-06-09 05:14] LABS: Anion Gap 14 mmol/L (10-20); BUN (Urea Nitrogen) 60 mg/dL (8.4-25.7); Calc. Creatinine Clearance 59 mL/min (70-130); Carbon Dioxide 22 mmol/L (23-31); Chloride 107 mmol/L (98-107); Glucose 123 mg/dL (83-110); Potassium 5.2 mmol/L (3.5-5.1); Sodium 138 mmol/L (136-145)
[2020-06-09] MEDS ORDERED: Furosemide 40 MG/4 ML VIAL SLOW IVP SCH (08:00)
[2020-06-09] MEDS: Pantoprazole 40 MG VIAL IVP SCH (08:57)
[2020-06-09] MEDS: Enoxaparin Sodium 40 MG/0.4 ML SYRINGE SC SCH (08:57)
--- NOTE | 2020-06-09 09:41 | RAD ---
CHEST 1 VIEW: HISTORY: Shortness of breath. COMPARISON: None available. FINDINGS: The heart size is borderline. There is a left-sided pleural effusion with associated parenchymal analy nge which is likely either atelectasis or infiltrate. Also, some increased density in the right base which could indicate some effusion, but atelectasis or infiltrate also could be present. Pulmonary vessels do not appear engorged and no interstitial edema. IMPRESSION: 1. Moderate left pleural effusion with left lower lobe pneumonia versus atelectasis. Lateral chest film would be helpful in assessment. 2. Right lower lobe parenchymal changes which could represent atelectasis versus minimal infiltrate. There could be some [id number] effusion present. POS: DEMETRIUS
[2020-06-09] MEDS ORDERED: HYDROcodone/Acetaminophen 7.5/325 mg Tablet PO PRN (11:25)
[2020-06-09] MEDS ORDERED: traMADol HCl 50 MG TAB PO PRN (11:25)
[2020-06-09] MEDS ORDERED: Milk Of Magnesia 30 ML UDCUP PO SCH (12:12)
--- NOTE | 2020-06-09 12:23 | PRG ---
DATE OF SERVICE: 06/09/2020 SUBJECTIVE: Mr. Mishra has no complaints. He is not eating much, but he denies nausea or bloating. He has not had a bowel movement for a few days. His abdomen is soft, minimally distended. Wound is healing well. ASSESSMENT: Status post antrectomy, gastrojejunostomy. Plan, we will advance to GI soft diet, although I do not expect him to eat much for now. Anorexia is common after gastrectomy. PLAN: GI soft diet. It is okay by me to fully anticoagulate at this point that would be safe. He is most certainly going to need assisted. He has not ambulated since surgery. Job ID: [id number]
[2020-06-09] MEDS ORDERED: Milk Of Magnesia 30 ML UDCUP PO PRN (12:30)
--- NOTE | 2020-06-09 14:08 | PDOC.HOSPP ---
- Subjective Encounter Date: 06/09/20 Encounter Time: 14:06 Subjective: Mr. Mishra was seen today in follow-up of antral mass. He notes some abdominal soreness, but otherwise he feels ok. - Objective Vital Signs & Weight: Vital Signs (12 hours) Temp Pulse Resp BP Pulse Ox 06/09/20 11:05 97.8 F 70 26 H 140/65 94 L 06/09/20 07:21 97.9 F 62 26 H 126/60 92 L 06/09/20 03:29 99.1 F 64 22 H 131/63 90 L Weight Admit Weight 226 lb 8 oz Weight 233 lb 3.2 oz I&O: 06/08/20 06/09/20 06/10/20 06:59 06:59 06:59 Intake Total 2352 1196 Output Total 250 850 Balance 2102 346 Result Diagrams: 06/09/20 04:12 06/09/20 04:12 Additional Labs: Accuchecks 06/09/20 06/09/20 06/08/20 10:40 05:45 20:23 POC Glucose 131 H 126 H 136 H 06/08/20 15:59 POC Glucose 126 H Hospitalist ROS - Medication Medications: Active Medications Generic Name Dose Route Start Last Admin Trade Name Freq PRN Reason Stop Dose Admin Enoxaparin Sodium 40 mg 06/08/20 09:00 06/09/20 08:57 Enoxaparin Sodium 40 Mg/0.4 Ml Syringe SC 40 mg 0900 LUCIA Administration Amiodarone HCl 450 mg/ 259 mls @ 0 mls/hr 06/06/20 08:45 06/08/20 21:00 Miscellaneous Medication 1 IVPB 259 mls each/ Dextrose/Water INF LUCIA Administration Protocol As Directed Insulin Human Lispro 0 units 05/28/20 13:05 06/04/20 11:18 Humalog 300 Units/3 Ml Vial SC 2 unit .MILD SLIDING SCALE PRN Administration Mild Correctional Scale Isosorbide Mononitrate 30 mg 06/05/20 09:00 06/09/20 08:57 Isosorbide Mononitrate Er 30 Mg Tab PO 30 mg DAILY LUCIA Administration Magnesium Hydroxide 30 ml 06/09/20 12:30 06/09/20 12:51 Milk Of Magnesia 30 Ml Udcup PO 06/09/20 23:00 30 ml ONE PRN Administration Constipation Metoprolol Tartrate 5 mg 06/05/20 03:20 06/08/20 15:16 Metoprolol Tartrate 5 Mg/5 Ml Vial IVP 5 mg Q6H PRN Administration Hypertension Pantoprazole Sodium 40 mg 06/07/20 09:00 06/09/20 08:57 Pantoprazole 40 Mg Vial IVP 40 mg DAILY LUCIA Administration Sodium Chloride 10 ml 05/30/20 21:00 06/09/20 09:53 Flush - Normal Saline 10 Ml Syringe IVF 10 ml Q12HR LUCIA Administration - Exam Eye: PERRL, anicteric sclera Heart: RRR, no murmur, no gallops, no rubs, normal peripheral pulses Respiratory: CTAB, no wheezes, no rales, no ronchi, normal chest expansion Gastrointestinal: soft, non-distended, normal bowel sounds, tender to palpation (+ mild tenderness to palpation) Extremities: no cyanosis, no edema Hosp A/P (1) Gastric mass Code(s): K31.89 - OTHER DISEASES OF STOMACH AND DUODENUM Status: Acute (2) Atrial fibrillation Code(s): I48.91 - UNSPECIFIED ATRIAL FIBRILLATION Status: Chronic Qualifiers: Atrial fibrillation type: paroxysmal Qualified Code(s): I48.0 - Paroxysmal atrial fibrillation (3) Diabetes mellitus type 2 in nonobese Code(s): E11.9 - TYPE 2 DIABETES MELLITUS WITHOUT COMPLICATIONS Status: Chronic - Plan * Gastric Antral mass- Pathology results have returned, and it itent with GIST tumor * Will consult Oncology * AFIB- heart rate is stable- he is currently on am Amiodarone drip. , Will defer decision regarding anticoagulation to Cardiology * DM- blood glucose has been stable- will continue to hold diabetic medication until his oral intake has improved * His diet has been advanced to full liquids * Deconditioning- continue PT/OT
--- NOTE | 2020-06-09 16:46 | CON ---
DATE OF CONSULTATION: REASON FOR CONSULTATION: Gastrointestinal stromal tumor. HISTORY OF PRESENT ILLNESS: Mr. Mishra is a pleasant 79-year-old gentleman, who presented to the emergency room with complaints of rectal bleeding. He underwent an EGD, where a submucosal mass was noted in the stomach. He then underwent a partial gastrectomy. Pathology returned gastrointestinal stromal tumor. It was predominantly epithelioid type, low-grade mitotic rate. He had 0/10 lymph nodes positive. All margins were negative. He has been recovering on the telemetry unit. He is passing gas and ambulating with physical therapy. His hemoglobin has been stable at around 10.5 since arrival. PAST MEDICAL HISTORY: 1. Diabetes mellitus 2. 2. Hypertension. 3. High cholesterol. 4. Obesity. PAST SURGICAL HISTORY: 1. Partial gastrectomy. 2. Ankle surgery. ALLERGIES: NO KNOWN DRUG ALLERGIES. CURRENT MEDICATIONS: 1. [place]. 2. Amiodarone. 3. Lovenox. 4. Imdur ER. 5. Milk of mag. 6. Lopressor. 7. Protonix. 8. Ultram. FAMILY HISTORY: Noncontributory. SOCIAL HISTORY: He is , lives with his in [place]. Former alcohol and tobacco use. REVIEW OF SYSTEMS: A 12-point review of systems is negative. PHYSICAL EXAMINATION: VITAL SIGNS: Temperature is 97.9, pulse is 80, respiratory rate 24, BP is 134/63. He is 94% on 3 L. GENERAL: This is a chronically ill-appearing male, in no acute distress. HEENT: Normocephalic and atraumatic. Pupils are equal and reactive to light. NECK: Supple. CV: Irregular rate and rhythm. LUNGS: Clear. ABDOMEN: Soft. Bowel sounds are positive. He has a midline incision with no drainage. EXTREMITIES: 1+ bilateral lower extremity edema. SKIN: No rash. NEUROLOGICAL: Nonfocal. PERTINENT LABORATORY DATA AND X-RAYS: Current WBCs are 9.8, hemoglobin 10.6, hematocrit 33.5, platelet count 168,000. 87% neutrophils, 6% lymphocytes. PT is 15, INR is 1.2, and PTT is 30.1. Sodium 138, potassium 5.2, chloride 107, CO2 is 22, BUN is 60, creatinine 1.54, calcium 8, bilirubin 0.7, AST is 20, ALT is 14, alkaline phosphatase is 34. Serum total protein is 6, albumin 3.2, globulin 2.8. COVID-19 negative. ASSESSMENT: Gastrointestinal stromal tumor. DISCUSSION: The patient has had resection of his tumor with zero positive lymph nodes and clear margins. He has a low mitotic rate. He is a candidate for oral Gleevec. The patient will follow up in our clinic in a couple of weeks to discuss treatment. Clinic information provided. Discussed with Dr. Ellis. Thank you for the consult. Job ID: [id number] MTDD
[2020-06-10] MEDS: Pantoprazole 40 MG VIAL IVP SCH (08:48)
[2020-06-10] MEDS: Enoxaparin Sodium 40 MG/0.4 ML SYRINGE SC SCH (08:48)
[2020-06-10] MEDS: Amiodarone 200 MG TAB PO SCH ×2 (08:48→21:03)
[2020-06-10] MEDS: Apixaban 5 MG TAB PO SCH ×2 (09:20→21:03)
--- NOTE | 2020-06-10 12:09 | PDOC.HOSPP ---
- Subjective Encounter Date: 06/10/20 Encounter Time: 12:07 Subjective: Mr. Mishra was seen today in follow-up of Gastrointestinal Stromal Tumor. He does not have any new complaints. - Objective Vital Signs & Weight: Vital Signs (12 hours) Temp Pulse Resp BP Pulse Ox 06/10/20 08:00 92 L 06/10/20 07:55 99 F 89 18 163/87 H 92 L 06/10/20 04:00 98.5 F 99 24 H 116/58 L 92 L Weight Admit Weight 226 lb 8 oz Weight 230 lb 1.6 oz I&O: 06/09/20 06/10/20 06/11/20 06:59 06:59 06:59 Intake Total 1196 1238 Output Total 850 1275 Balance 346 -37 Result Diagrams: 06/09/20 04:12 06/09/20 04:12 Additional Labs: Accuchecks 06/10/20 06/10/20 06/09/20 10:40 06:05 20:34 POC Glucose 120 H 110 H 139 H 06/09/20 16:42 POC Glucose 114 H Hospitalist ROS - Medication Medications: Active Medications Generic Name Dose Route Start Last Admin Trade Name Freq PRN Reason Stop Dose Admin Amiodarone HCl 400 mg 06/10/20 09:00 06/10/20 08:48 Amiodarone 200 Mg Tab PO 400 mg BID LUCIA Administration Apixaban 5 mg 06/10/20 09:00 06/10/20 09:20 Apixaban 5 Mg Tab PO 5 mg BID LUCIA Administration Insulin Human Lispro 0 units 05/28/20 13:05 06/04/20 11:18 Humalog 300 Units/3 Ml Vial SC 2 unit .MILD SLIDING SCALE PRN Administration Mild Correctional Scale Isosorbide Mononitrate 30 mg 06/05/20 09:00 06/10/20 08:48 Isosorbide Mononitrate Er 30 Mg Tab PO 30 mg DAILY LUCIA Administration Metoprolol Tartrate 5 mg 06/05/20 03:20 06/08/20 15:16 Metoprolol Tartrate 5 Mg/5 Ml Vial IVP 5 mg Q6H PRN Administration Hypertension Pantoprazole Sodium 40 mg 06/07/20 09:00 06/10/20 08:48 Pantoprazole 40 Mg Vial IVP 40 mg DAILY LUCIA Administration Sodium Chloride 10 ml 05/30/20 21:00 06/10/20 08:49 Flush - Normal Saline 10 Ml Syringe IVF Not Given Q12HR LUCIA - Exam Eye: PERRL, anicteric sclera ENT: normocephalic atraumatic, no oropharyngeal lesions Heart: RRR, no murmur, no gallops, no rubs, normal peripheral pulses Respiratory: CTAB, no wheezes, no rales, no ronchi, normal chest expansion, no tachypnea, normal percussion Gastrointestinal: soft, non-tender, non-distended (mid line abdominal incision looks good), normal bowel sounds, no palpable masses, no hepatomegaly Extremities: 2+ LE edema Hosp A/P (1) Gastric mass Code(s): K31.89 - OTHER DISEASES OF STOMACH AND DUODENUM Status: Acute (2) Atrial fibrillation Code(s): I48.91 - UNSPECIFIED ATRIAL FIBRILLATION Status: Chronic Qualifiers: Atrial fibrillation type: paroxysmal Qualified Code(s): I48.0 - Paroxysmal atrial fibrillation (3) Diabetes mellitus type 2 in nonobese Code(s): E11.9 - TYPE 2 DIABETES MELLITUS WITHOUT COMPLICATIONS Status: Chronic - Plan * Gastrointestinal Stromal Tumor- Oncology evaluation noted. He is a candidate for Gleevec * AFIB- heart rate is stable- can re-start Eliquis * DM- blood glucose has been stable- will continue to hold diabetic medication - re-start if his blood glucose begins to rise * Continue to advance diet as tolerated * Deconditioning- continue PT/OT * Begin discharge planning
--- NOTE | 2020-06-10 12:22 | PDOC.GSPN ---
Surgery Progress Note: Subj - Subjective Patient reports: no new complaints (Trying GI soft diet for lunch) Surgery Progress Note: Obj - Vital signs Vital signs: Vital Signs - Most Recent Temp Pulse Resp BP Pulse Ox 99 F 89 18 163/87 H 92 L 06/10/20 07:55 06/10/20 07:55 06/10/20 07:55 06/10/20 07:55 06/10/20 08:00 - Physical Exam General: no distress Respiratory: clear to auscultation Abdomen: soft, non tender Wound: healing well Surgery Progress Note: Results - Labs Result Diagrams: 06/09/20 04:12 06/09/20 04:12 Lab results: Laboratory Results - last 12 hr 06/10/20 06/10/20 06:05 10:40 POC Glucose 110 H 120 H Surgery Progress Note: A/P - Problem (1) Gastric mass Current Visit: Yes Code(s): K31.89 - OTHER DISEASES OF STOMACH AND DUODENUM Status: Acute - Plan Plan: Antrectomy/gastroJ -ready for SNU -JAXSON jay
[2020-06-10] MEDS ORDERED: Digoxin 0.5 MG/2 ML AMP SLOW IVP SCH (17:00)
[2020-06-10] MEDS ORDERED: Furosemide 40 MG/4 ML VIAL SLOW IVP SCH (18:30)
--- NOTE | 2020-06-10 19:08 | RAD ---
CHEST ONE VIEW: 06/10/20 COMPARISON: 06/09/20. HISTORY: Shortness of breath. FINDINGS: Stable cardiac silhouette. There is persistent atherosclerosis of the aorta. Stable pleural and pare nchymal changes in the left hemithorax. There is interval increased opacification in the right lung b ase suggesting edema or infiltrate. No pneumothorax. IMPRESSION: 1. Worsening opacification of the right lung base. 2. Stable pleural and parenchymal change in the left lung base. Continued surveillance is recomm ended. POS: PPP
[2020-06-11 04:43] LABS: #Lymphocytes 0.5 thou/uL (1.20-3.40); #Monocytes 0.6 thou/uL (0.11-0.59); #Neutrophils 6.7 thou/uL (1.40-6.50); %Eosinophils 0.3 % (0.0-10.0); %Lymphocytes 6.4 % (21.0-51.0); %Monocytes 8.1 % (0.0-10.0); %Neutrophils 85.1 % (42.0-75.0); Hemoglobin 10.6 g/dL (14.0-18.0); Mean Corpuscular HGB CONC 32.6 g/dL (32.0-36.0); Mean Platelet Volume 9.3 fL (7.4-10.4); Platelet Count 161 thou/uL (130-400); RBC Distribution Width 13.3 % (11.5-14.5); Red Blood Cell (RBC) Count 3.21 mill/uL (4.70-6.10); White Blood Cell (WBC) Count 7.9 thou/uL (4.8-10.8)
[2020-06-11 04:57] LABS: Anion Gap 11 mmol/L (10-20); BUN (Urea Nitrogen) 51 mg/dL (8.4-25.7); Calc. Creatinine Clearance 78 mL/min (70-130); Calcium 7.9 mg/dL (7.8-10.44); Carbon Dioxide 26 mmol/L (23-31); Chloride 104 mmol/L (98-107); Glucose 103 mg/dL (83-110); Potassium 4.1 mmol/L (3.5-5.1); Sodium 137 mmol/L (136-145)
[2020-06-11] MEDS: Apixaban 5 MG TAB PO SCH ×2 (09:54→21:20)
[2020-06-11] MEDS: Pantoprazole 40 MG VIAL IVP SCH (09:54)
[2020-06-11] MEDS: Amiodarone 200 MG TAB PO SCH ×2 (09:54→21:20)
--- NOTE | 2020-06-11 10:38 | PRG ---
DATE OF SERVICE: 06/11/2020 SUBJECTIVE: Mr. Mishra has no complaints. He denies nausea, vomiting, or bloating. OBJECTIVE: His abdomen is soft and nondistended. His wound is healing well. ASSESSMENT: Status post antrectomy for just tumor with negative margins and negative lymph nodes. PLAN: needs to go to intermediate. He is hesitant for this. He is ready for discharge from my standpoint to intermediate. It would be unsafe for him to be discharged home, given his lack of mobility. Job ID: [id number]
--- NOTE | 2020-06-11 15:05 | PDOC.CPN ---
- Subjective Date: 06/11/20 Time: 13:30 Interval history: Patient says he rested well overnight. Has no new complaints. - Review of Systems General: denies: fever/chills, weight/appetite/sleep changes, night sweats, fatigue Respiratory: denies: cough, congestion, shortness of breath, exercise intolerance Cardiovascular: denies: chest pain, palpitation, edema, paroxysmal nocturnal dyspnea, orthopnea Gastrointestinal: denies: nausea, vomiting, diarrhea, constipation, abd pain, GI bleeding Musculoskeletal: denies: pain, tenderness, stiffness, swelling, a rthritis/arthralgias Neurological: denies: numbness, syncope, seizure, weakness - Objective Allergies/Adverse Reactions: Allergies Allergy/AdvReac Type Severity Reaction Status Date / Time No Known Allergies Allergy Verified 10/16/19 15:47 Visit Medications: Current Medications Acetaminophen (Acetaminophen 325 Mg Tab) 650 mg PO Q4H PRN PRN Reason: Headache/Fever/Mild Pain (1-3) Hydrocodone Bitart/Acetaminophen (Hydrocodone/Acetaminophen 7.5/325 Mg Tablet) 1 tab PO Q6H PRN PRN Reason: Mild Pain (1-3) Amiodarone HCl (Amiodarone 200 Mg Tab) 400 mg PO BID [facility] Last Admin: 06/11/20 09:54 Dose: 400 mg Documented by: Apixaban (Apixaban 5 Mg Tab) 5 mg PO BID [facility] Last Admin: 06/11/20 09:54 Dose: 5 mg Documented by: Dextrose/Water (Dextrose 50% Abboject 50 Ml Syringe) 25 gm SLOW IVP PRN PRN PRN Reason: Hypoglycemia Fentanyl (Fentanyl 100 Mcg/2 Ml Vial) 25 mcg SLOW IVP Q2H PRN PRN Reason: Mild Pain (1-3) Fentanyl (Fentanyl 100 Mcg/2 Ml Vial) 50 mcg SLOW IVP Q2H PRN PRN Reason: Moderate to Severe Pain (6-10) Glucagon (Glucagon 1 Mg/Ml Vial) 1 mg IM PRN PRN PRN Reason: Hypoglycemia Dextrose/Water (D5w) 1,000 mls @ 0 mls/hr IV .Q0M PRN PRN Reason: Hypoglycemia Sodium Chloride (Normal Saline 0.9%) 1,000 mls @ 0 mls/hr IV .Q0M [facility] Insulin Human Lispro (Humalog 300 Units/3 Ml Vial) 0 units SC .MILD SLIDING SCALE PRN PRN Reason: Mild Correctional Scale Last Admin: 06/04/20 11:18 Dose: 2 unit Documented by: Isosorbide Mononitrate (Isosorbide Mononitrate Er 30 Mg Tab) 30 mg PO DAILY [facility] Last Admin: 06/11/20 09:54 Dose: 30 mg Documented by: Metoprolol Tartrate (Metoprolol Tartrate 5 Mg/5 Ml Vial) 5 mg IVP Q6H PRN PRN Reason: Hypertension Last Admin: 06/08/20 15:16 Dose: 5 mg Documented by: Ondansetron HCl (Ondansetron Pf 4 Mg/2 Ml Vial) 4 mg IVP Q6H PRN PRN Reason: Nausea/Vomiting Pantoprazole Sodium (Pantoprazole 40 Mg Vial) 40 mg IVP DAILY [facility] Last Admin: 06/11/20 09:54 Dose: 40 mg Documented by: Sodium Chloride (Flush - Normal Saline 10 Ml Syringe) 10 ml IVF Q12HR [facility] Last Admin: 06/11/20 09:54 Dose: 10 ml Documented by: Sodium Chloride (Flush - Normal Saline 10 Ml Syringe) 10 ml IVF PRN PRN PRN Reason: Saline Flush Tramadol HCl (Tramadol Hcl 50 Mg Tab) 50 mg PO Q6H PRN PRN Reason: Mild Pain (1-3) Vital Signs & Weight: Vital Signs Temp Pulse Resp BP Pulse Ox 06/11/20 11:37 98.6 F 96 128/66 06/11/20 08:00 98.1 F 85 20 129/64 95 06/11/20 03:45 97.5 F L 70 22 H 130/60 98 Admit Weight 226 lb 8 oz Weight 239 lb 8 oz - Physical Exam General: alert & oriented x3, appears well, no apparent distress HEENT: mucus membranes moist Neck: supple neck Cardiac: other (IRR) Lungs: normal breath sounds, no wheeze, rales, rhonchi Neuro: grossly intact Abdomen: soft Extremities: 2+ LE edema Musculoskeletal: no pain - Labs Result Diagrams: 06/11/20 04:16 06/11/20 04:16 Troponin/CKMB CK-MB (CK-2) 5.8 ng/mL (0-6.6) 05/28/20 13:05 Troponin I 0.081 ng/mL (< 0.028) H 05/28/20 13:05 - Assessment/Plan Assessment/Plan: 1. Persistent AF 2. s/p recent partial gastrectomy 3. GIB 4. CAD Patient with quite a bit of edema. Will add lasix for short course. Rate- controlled. Eliquis has been resumed. 06/10/2020 RG agree with the above. Pt seen and examined.
[2020-06-11] MEDS ORDERED: Furosemide 20 MG/2 ML VIAL SLOW IVP SCH (15:15)
--- NOTE | 2020-06-11 17:43 | PDOC.HOSPP ---
- Subjective Encounter Date: 06/11/20 Encounter Time: 11:30 Subjective: Patient seen for follow-up regarding gastrointestinal stromal tumor. He denies chest pain or shortness of breath. - Objective Vital Signs & Weight: Vital Signs (12 hours) Temp Pulse Resp BP Pulse Ox 06/11/20 15:59 98.2 F 77 21 H 135/66 06/11/20 11:37 98.6 F 96 128/66 06/11/20 08:00 98.1 F 85 20 129/64 95 Weight Admit Weight 226 lb 8 oz Weight 239 lb 8 oz I&O: 06/10/20 06/11/20 06/12/20 06:59 06:59 06:59 Intake Total 1238 713 Output Total 1275 1450 Balance -37 -737 Result Diagrams: 06/11/20 04:16 06/11/20 04:16 Additional Labs: Accuchecks 06/11/20 06/10/20 05:56 21:17 POC Glucose 101 H 124 H I reviewed patient's labs and MAR EKG Reviewed by me: Yes (Atrial fibrillation on telemetry) Hospitalist ROS - Review of Systems Cardiovascular: denies: chest pain, palpitations, orthopnea, paroxysmal noc. dyspnea, edema, light headedness Gastrointestinal: denies: nausea, vomiting, abdominal pain, diarrhea, constipation, melena, hematochezia - Medication Medications: Active Medications Generic Name Dose Route Start Last Admin Trade Name Freq PRN Reason Stop Dose Admin Amiodarone HCl 400 mg 06/10/20 09:00 06/11/20 09:54 Amiodarone 200 Mg Tab PO 400 mg BID LUCIA Administration Apixaban 5 mg 06/10/20 09:00 06/11/20 09:54 Apixaban 5 Mg Tab PO 5 mg BID LUCIA Administration Insulin Human Lispro 0 units 05/28/20 13:05 06/04/20 11:18 Humalog 300 Units/3 Ml Vial SC 2 unit .MILD SLIDING SCALE PRN Administration Mild Correctional Scale Isosorbide Mononitrate 30 mg 06/05/20 09:00 06/11/20 09:54 Isosorbide Mononitrate Er 30 Mg Tab PO 30 mg DAILY LUCIA Administration Metoprolol Tartrate 5 mg 06/05/20 03:20 06/08/20 15:16 Metoprolol Tartrate 5 Mg/5 Ml Vial IVP 5 mg Q6H PRN Administration Hypertension Pantoprazole Sodium 40 mg 06/07/20 09:00 06/11/20 09:54 Pantoprazole 40 Mg Vial IVP 40 mg DAILY LUCIA Administration Sodium Chloride 10 ml 05/30/20 21:00 06/11/20 09:54 Flush - Normal Saline 10 Ml Syringe IVF 10 ml Q12HR LUCIA Administration Sodium Chloride 10 ml 05/30/20 10:00 06/11/20 16:59 Flush - Normal Saline 10 Ml Syringe IVF 10 ml PRN PRN Administration Saline Flush - Exam General Appearance: awake alert General - other findings: Obese Eye: anicteric sclera ENT: moist mucosa Neck: supple Heart: irregular Respiratory: CTAB, no wheezes Gastrointestinal: soft, non-tender Skin: no rashes Psychiatric: normal affect, normal behavior Hosp A/P - Plan -Assessment (1) Gastric mass Code(s): K31.89 - OTHER DISEASES OF STOMACH AND DUODENUM Status: Acute (2) Atrial fibrillation Code(s): I48.91 - UNSPECIFIED ATRIAL FIBRILLATION Status: Chronic Qualifiers: Atrial fibrillation type: paroxysmal Qualified Code(s): I48.0 - Paroxysmal atrial fibrillation (3) Diabetes mellitus type 2 Status: Chronic - Plan * Gastrointestinal Stromal Tumor-patient to follow-up with oncology as outpatient for Gleevec * AFIB- heart rate is stable-continue Eliquis * DM-continue Accu-Cheks and insulin sliding scale * Continue to advance diet as tolerated * Deconditioning- continue PT/OT * Patient will likely need inpatient rehab versus long term facility
[2020-06-12] MEDS: Apixaban 5 MG TAB PO SCH ×2 (08:44→20:29)
[2020-06-12] MEDS: Furosemide 20 MG TAB PO SCH (08:44)
[2020-06-12] MEDS: Amiodarone 200 MG TAB PO SCH ×2 (08:44→20:29)
[2020-06-12] MEDS: Pantoprazole 40 MG VIAL IVP SCH (08:45)
[2020-06-12] MEDS ORDERED: Furosemide 40 MG/4 ML VIAL SLOW IVP SCH (10:00)
--- NOTE | 2020-06-12 14:39 | PDOC.CPN ---
- Subjective Date: 06/12/20 Time: 11:50 Interval history: Patient with c/o dry nose, but otherwise doing well. No overnight events. - Review of Systems General: denies: fever/chills, weight/appetite/sleep changes, night sweats, fatigue Respiratory: denies: cough, congestion, shortness of breath, exercise intolerance Cardiovascular: reports: edema. denies: chest pain, palpitation, paroxysmal nocturnal dyspnea, orthopnea Gastrointestinal: denies: nausea, vomiting, diarrhea, constipation, abd pain, GI bleeding Neurological: denies: numbness, syncope, seizure, weakness - Objective Allergies/Adverse Reactions: Allergies Allergy/AdvReac Type Severity Reaction Status Date / Time No Known Allergies Allergy Verified 10/16/19 15:47 Visit Medications: Current Medications Acetaminophen (Acetaminophen 325 Mg Tab) 650 mg PO Q4H PRN PRN Reason: Headache/Fever/Mild Pain (1-3) Hydrocodone Bitart/Acetaminophen (Hydrocodone/Acetaminophen 7.5/325 Mg Tablet) 1 tab PO Q6H PRN PRN Reason: Mild Pain (1-3) Amiodarone HCl (Amiodarone 200 Mg Tab) 400 mg PO BID [facility] Last Admin: 06/12/20 08:44 Dose: 400 mg Documented by: Apixaban (Apixaban 5 Mg Tab) 5 mg PO BID [facility] Last Admin: 06/12/20 08:44 Dose: 5 mg Documented by: Dextrose/Water (Dextrose 50% Abboject 50 Ml Syringe) 25 gm SLOW IVP PRN PRN PRN Reason: Hypoglycemia Fentanyl (Fentanyl 100 Mcg/2 Ml Vial) 25 mcg SLOW IVP Q2H PRN PRN Reason: Mild Pain (1-3) Fentanyl (Fentanyl 100 Mcg/2 Ml Vial) 50 mcg SLOW IVP Q2H PRN PRN Reason: Moderate to Severe Pain (6-10) Furosemide (Furosemide 20 Mg Tab) 20 mg PO DAILY [facility] Last Admin: 06/12/20 08:44 Dose: 20 mg Documented by: Glucagon (Glucagon 1 Mg/Ml Vial) 1 mg IM PRN PRN PRN Reason: Hypoglycemia Dextrose/Water (D5w) 1,000 mls @ 0 mls/hr IV .Q0M PRN PRN Reason: Hypoglycemia Sodium Chloride (Normal Saline 0.9%) 1,000 mls @ 0 mls/hr IV .Q0M [facility] Insulin Human Lispro (Humalog 300 Units/3 Ml Vial) 0 units SC .MILD SLIDING SCALE PRN PRN Reason: Mild Correctional Scale Last Admin: 06/04/20 11:18 Dose: 2 unit Documented by: Isosorbide Mononitrate (Isosorbide Mononitrate Er 30 Mg Tab) 30 mg PO DAILY [facility] Last Admin: 06/12/20 08:45 Dose: 30 mg Documented by: Metoprolol Tartrate (Metoprolol Tartrate 5 Mg/5 Ml Vial) 5 mg IVP Q6H PRN PRN Reason: Hypertension Last Admin: 06/08/20 15:16 Dose: 5 mg Documented by: Ondansetron HCl (Ondansetron Pf 4 Mg/2 Ml Vial) 4 mg IVP Q6H PRN PRN Reason: Nausea/Vomiting Pantoprazole Sodium (Pantoprazole 40 Mg Vial) 40 mg IVP DAILY [facility] Last Admin: 06/12/20 08:45 Dose: 40 mg Documented by: Sodium Chloride (Flush - Normal Saline 10 Ml Syringe) 10 ml IVF Q12HR [facility] Last Admin: 06/12/20 08:45 Dose: 10 ml Documented by: Sodium Chloride (Flush - Normal Saline 10 Ml Syringe) 10 ml IVF PRN PRN PRN Reason: Saline Flush Last Admin: 06/11/20 16:59 Dose: 10 ml Documented by: Tramadol HCl (Tramadol Hcl 50 Mg Tab) 50 mg PO Q6H PRN PRN Reason: Mild Pain (1-3) Vital Signs & Weight: Vital Signs Temp Pulse Resp BP Pulse Ox 06/12/20 11:03 98.8 F 83 20 123/58 L 98 06/12/20 07:23 98.6 F 79 15 142/67 H 99 06/12/20 04:15 97.8 F 79 22 H 131/60 98 Admit Weight 226 lb 8 oz Weight 239 lb - Physical Exam General: alert & oriented x3, appears well, no apparent distress HEENT: mucus membranes moist Neck: supple neck, no JVD/HJR Cardiac: other (IRR IRR) Lungs: clear to auscultation Neuro: grossly intact Abdomen: soft, non-tender Extremities: 2+ LE edema Skin: clear Musculoskeletal: no pain - Labs Result Diagrams: 06/11/20 04:16 06/11/20 04:16 Troponin/CKMB CK-MB (CK-2) 5.8 ng/mL (0-6.6) 05/28/20 13:05 Troponin I 0.081 ng/mL (< 0.028) H 05/28/20 13:05 - Assessment/Plan Assessment/Plan: 1. Persistent AF 2. s/p recent partial gastrectomy 3. GIB 4. CAD Continue diuresis for edema. On Amio, but remains AF and rate-controlled. On Eliquis.
--- NOTE | 2020-06-12 15:13 | PDOC.HOSPP ---
- Subjective Encounter Date: 06/12/20 Encounter Time: 10:30 Subjective: Patient seen for follow-up regarding GIST tumor. He denies any new complaints. - Objective Vital Signs & Weight: Vital Signs (12 hours) Temp Pulse Resp BP Pulse Ox 06/12/20 11:03 98.8 F 83 20 123/58 L 98 06/12/20 07:23 98.6 F 79 15 142/67 H 99 06/12/20 04:15 97.8 F 79 22 H 131/60 98 Weight Admit Weight 226 lb 8 oz Weight 239 lb I&O: 06/11/20 06/12/20 06/13/20 06:59 06:59 06:59 Intake Total 713 1700 Output Total 1450 300 Balance -737 1400 Result Diagrams: 06/11/20 04:16 06/11/20 04:16 Additional Labs: Accuchecks 06/12/20 06/12/20 06/11/20 10:54 05:55 21:26 POC Glucose 141 H 101 H 133 H Labs and MAR reviewed by me EKG Reviewed by me: Yes (Telemetry shows atrial fibrillation) Hospitalist ROS - Review of Systems Cardiovascular: denies: chest pain, palpitations, orthopnea, paroxysmal noc. dyspnea, edema, light headedness Gastrointestinal: denies: nausea, vomiting, abdominal pain, diarrhea, con stipation, melena, hematochezia - Medication Medications: Active Medications Generic Name Dose Route Start Last Admin Trade Name Freq PRN Reason Stop Dose Admin Amiodarone HCl 400 mg 06/10/20 09:00 06/12/20 08:44 Amiodarone 200 Mg Tab PO 400 mg BID LUCIA Administration Apixaban 5 mg 06/10/20 09:00 06/12/20 08:44 Apixaban 5 Mg Tab PO 5 mg BID LUCIA Administration Furosemide 20 mg 06/12/20 09:00 06/12/20 08:44 Furosemide 20 Mg Tab PO 20 mg DAILY LUCIA Administration Insulin Human Lispro 0 units 05/28/20 13:05 06/04/20 11:18 Humalog 300 Units/3 Ml Vial SC 2 unit .MILD SLIDING SCALE PRN Administration Mild Correctional Scale Isosorbide Mononitrate 30 mg 06/05/20 09:00 06/12/20 08:45 Isosorbide Mononitrate Er 30 Mg Tab PO 30 mg DAILY LUCIA Administration Metoprolol Tartrate 5 mg 06/05/20 03:20 06/08/20 15:16 Metoprolol Tartrate 5 Mg/5 Ml Vial IVP 5 mg Q6H PRN Administration Hypertension Pantoprazole Sodium 40 mg 06/07/20 09:00 06/12/20 08:45 Pantoprazole 40 Mg Vial IVP 40 mg DAILY LUCIA Administration Sodium Chloride 10 ml 05/30/20 21:00 06/12/20 08:45 Flush - Normal Saline 10 Ml Syringe IVF 10 ml Q12HR LUCIA Administration Sodium Chloride 10 ml 05/30/20 10:00 06/11/20 16:59 Flush - Normal Saline 10 Ml Syringe IVF 10 ml PRN PRN Administration Saline Flush - Exam General Appearance: awake alert Eye: anicteric sclera ENT: moist mucosa Neck: supple Heart: irregular Respiratory: CTAB, no wheezes Gastrointestinal: soft, non-tender Skin: no rashes Psychiatric: normal affect, normal behavior Hosp A/P - Plan -Assessment (1) Gastric mass Code(s): K31.89 - OTHER DISEASES OF STOMACH AND DUODENUM Status: Acute (2) Atrial fibrillation Code(s): I48.91 - UNSPECIFIED ATRIAL FIBRILLATION Status: Chronic Qualifiers: Atrial fibrillation type: paroxysmal Qualified Code(s): I48.0 - Paroxysmal atrial fibrillation (3) Diabetes mellitus type 2 Status: Chronic - Plan * Gastrointestinal Stromal Tumor-patient to follow-up with oncology as outpatient for Gleevec * AFIB-rate controlled, patient is on apixaban. * DM-continue Accu-Cheks and insulin sliding scale * Deconditioning- continue PT/OT * Patient will likely need inpatient rehab versus group home facility * Discharge planning in progress.
[2020-06-13] MEDS: Apixaban 5 MG TAB PO SCH (08:48)
[2020-06-13] MEDS: Amiodarone 200 MG TAB PO SCH (08:48)
[2020-06-13] MEDS: Furosemide 20 MG TAB PO SCH (08:49)
[2020-06-13] MEDS: Pantoprazole 40 MG VIAL IVP SCH (08:49)
[2020-06-13 14:23] VITALS: BMI 32.5
--- NOTE | 2020-06-13 17:27 | PDOC.DS.DS ---
Provider - Provider Date of Admission: 05/28/20 12:59 Date of Discharge: 06/13/20 Admitting Provider: Minal Hernandez MD Consultations: Cardiology (Dr. Tobias), Gastroentrology (), General Surgery (Dr. Tomlinson) Primary Care Physician: HUNG TOLEDO Course - Hospital Course Hospital Course: Discharge diagnosis: 1. GI bleed 2. Gastrointestinal stromal tumor 3. Acute kidney injury 4. Atrial fibrillation 5. S/p gastrectomy and loop gastro jejunostomy during this hospitalization 6. COVID-19 PCR test negative 7. Physical deconditioning Hospital course: Patient is a pleasant 79-year-old gentleman who was admitted to the hospital on May 28, 2020 for melena and hypotension. He was also found to be in atrial fibrillation. He also had acute kidney injury. He was seen by cardiology and gastroenterology services. On May 31 he underwent EGD. He was found to have a submucosal gastric mass about 2 to 2.5 cm in size, superficial ulceration which is site of bleeding. He was also seen by general surgery service. On June 06 he underwent partial gastrectomy with loop gastrojejunostomy. Pathology report indicated gastrointestinal stromal tumor, all margins negative for tumor. He was seen by oncology service. Patient would be a candidate for oral Gleevec. He is advised to follow-up with oncology clinic in a couple of weeks to discuss treatment options. He was physically deconditioned. He was seen by therapy services. He was recommended inpatient rehabilitation. He is being discharged to inpatient rehab. Patient is being discharged on amiodarone, taper as follows: 400 mg 2 times a day for 2 weeks starting June 10 2020, then 400 mg daily for 2 weeks, then 200 mg daily. Resuscitation Status: 05/30/20 17:09 Resuscitation Status Routine Co-Sign Provider: Resuscitation Status: DNAR: NO Resuscitation Discussed with: patient Additional comments: consent signed and on chart - Labs Lab Results: 06/11/20 04:16 06/11/20 04:16 Microbiology - Entire Visit 05/28/20 16:37 Stool - Pending Stool Culture - Final 05/28/20 16:37 Stool - Pending C. difficile GDH Antigen & Toxins - Final 05/28/20 16:37 Stool - Pending Campylobacter Antigen Assay - Final 05/28/20 16:37 Stool - Pending Shiga Toxin Test - Final 05/28/20 16:37 Stool - Pending Stool Lactoferrin - Final 05/28/20 16:30 Stool Stool Occult Blood (LEIGH) - Final - Physical Exam Vitals: Vital Signs (12 hours) Temp Pulse Resp BP Pulse Ox 06/13/20 16:00 97.8 F 79 18 126/62 98 06/13/20 11:08 98.2 F 86 19 125/58 L 100 06/13/20 08:40 99.0 F 85 18 141/65 H 100 Weight Admit Weight 226 lb 8 oz Weight 233 lb Physical Exam: The patient was seen and examined on the day of discharge. Patient denies chest pain or shortness of breath. Vital signs are stable. S1 and S2 are heard. Lungs are clear to auscultation bilaterally. Problem - Time spent with Patient (mins): 33 Plan - Discharge Medications Home Medications: Medication Instructions Recorded Confirmed Type Fenofibric Acid (Choline) 135 mg PO HS 07/28/13 06/04/20 History [Fenofibric Acid] Propylene Glycol/PEG 400 [Systane 2 - 3 drp OP BID 07/28/13 06/04/20 History Liquid Gel Eye Drops] Citalopram [CeleXA] 10 mg PO DAILY #0 tab 07/29/13 06/04/20 Rx Isosorbide Mononitrate [Isosorbide 30 mg PO DAILY #0 tab.er.24h 07/29/13 06/04/20 Rx Mononitrate ER] [place]-3 Fatty Acids [[place]-3] 1,000 mg PO DAILY #0 capsule 07/29/13 06/04/20 Rx Pioglitazone HCl [Actos] 30 mg PO DAILY #0 tab 07/29/13 06/04/20 Rx Rosuvastatin [Crestor] 10 mg PO DAILY #0 tab 07/29/13 06/04/20 Rx Amiodarone [Cordarone] 400 mg PO BID tab 06/13/20 Rx Apixaban [Eliquis] 5 mg PO BID tab 06/13/20 Rx Furosemide [Lasix] 20 mg PO DAILY tab 06/13/20 Rx Pantoprazole [Protonix] 40 mg PO DAILY vial 06/13/20 Rx Allergies: No Known Allergies Allergy (Verified 10/16/19 15:47) - Discharge Instructions Discharge Instructions:: Amiodarone taper: 400 mg 2 times a day for 2 weeks starting June 10, 2020, then 400 mg daily for 2 weeks, then 200 mg daily. Activity:: Activity as Tolerated Nourishment:: Diabetic Diet, Heart Healthy Diet - Follow up Plan Referrals: [facility], Gabe Ponce [Other] (inpatient rehab admit.) Sushil Ellis MD [Active] - 14 Days (follow up for biospy results.) Gabe Tomlinson MD [Active] - 14 Days (Follow up post surgery. Please call to schedule an appointment.) Rene Tobias MD [Active] - 2-3 Weeks (please call office to schedule a follow up) STEPH VARGAS & [Primary Care Provider] - Disposition: REHABILITATION INPATIENT Quality - Care Measures CORE MEASURES:: N/A
[2020-06-13 19:12] VITALS: BP 135/63; TEMP 99
[2020-06-13] MEDS ORDERED: Rosuvastatin 10 MG TAB PO SCH (21:00)
== END 2020-06-13 19:31 | DRG 327 ==
LOC: ERS 10:59 → ERHOLD 12:59 → 2NO 17:48
PROVIDERS: ADMIT Internal Medicine; ATTEND Internal Medicine
PROC: 0DJ08ZZ Inspection of Upper Intestinal Tract, Via Natural or Artificial Opening Endoscopic (ICD-10-PCS; 2020-05-30)
PROC: 0DB60ZZ Excision of Stomach, Open Approach (ICD-10-PCS; principal; 2020-06-06)
PROC: 0D160ZA Bypass Stomach to Jejunum, Open Approach (ICD-10-PCS; 2020-06-06)
DX: C49.A2 Gastrointestinal stromal tumor of stomach (principal); N17.9 Acute kidney failure, unspecified; D62 Acute posthemorrhagic anemia; Z20.828 Contact with and (suspected) exposure to other viral communicable diseases; Z51.5 Encounter for palliative care; Z66 Do not resuscitate; E11.9 Type 2 diabetes mellitus without complications; E78.5 Hyperlipidemia, unspecified; E78.00 Pure hypercholesterolemia, unspecified; E66.9 Obesity, unspecified; H35.30 Unspecified macular degeneration; I48.0 Paroxysmal atrial fibrillation; I35.0 Nonrheumatic aortic (valve) stenosis; Z87.891 Personal history of nicotine dependence; Z68.32 Body mass index [BMI] 32.0-32.9, adult
CPT/HCPCS: 36415; 36416; 71045; 80048; 80053; 82274; 82553; 83630; 83735; 84443; 84484; 85014; 85018; 85025; 85610; 85730; 86850; 86900; 86901; 87045; 87046; 87324; 87427; 87449; 87635; 88309; 88341; 88342; 88360; 93005; 93306; 96365; 96366; 96376; C9113; J0282; J0694; J1100; J1160; J1650; J1940; J2405; J2704; J3010; J3490; J7070; S0020; U0003